=== PATIENT | female | born 1940 | race Caucasian/White ===

== ENCOUNTER 2016-05-03 18:33 | Emergency (ER) | payer OTHER ==
[~2016-05-03] VITALS: Ht 147.3 cm; Wt 111.0 kg
[~2016-05-03 18:33] MED LIST: ALBU0.63 NEB; ASPI1TAB69 PO; CEPH-460 PO; CHOLMIS PO; TRAZ150T75 PO; VIST50CA PO; blood pressure med PO; diabetic med PO
[2016-05-03 19:06] VITALS: BP 169/69; PULSE 86; RESP 24; TEMP 98; O2SAT 84
[2016-05-03 19:28] VITALS: O2SAT 86
[2016-05-03] MEDS ORDERED: SODIUM CHLORIDE 0.9% FLUSH 5 ML FLUSH IVF PRN (19:30)
--- NOTE | 2016-05-03 19:34 | PD ---
HPI Chief Complaint: Respiratory Symptoms Time Seen by Provider: 19:17 Travel History International Travel<30 days: No Contact w/Intl Traveler<30days: No Traveled to known affect area: No History of Present Illness HPI This is a 75-year-old female with history of diabetes mellitus, COPD, reported CHF, who presents today with complaints of general malaise. The patient reports that she is just not been feeling her normal self. She states she's been feeling weak. She reports pain in her left sided chest that radiates to her left flank. She reports a productive cough of yellow phlegm. She also reports loose stools 2 days. She denies any dysuria, urgency, frequency. She reports using her nebulizer at home with no improvement. She has had "walking pneumonia" in the past. She reports feeling warm and chills but has not taken her temperature. PFSH Past Medical History Hx Anticoagulant Therapy: No Arthritis: Yes (bilateral knees) Asthma: Yes Autoimmune Disease: No Anxiety: Yes Depression: Yes Heart Rhythm Problems: No Cancer: No Cardiovascular Problems: Yes (HTN, CHOL) High Cholesterol: Yes Chest Pain: No Congestive Heart Failure: No COPD: Yes Diabetes: Yes (TYPE 2) Patient Takes Glucophage: No Diminished Hearing: Yes (SLIGHTLY MOHEGAN BILAT) Endocrine: Yes Gastrointestinal Disorders: Yes GERD: Yes Genitourinary: No Hiatal Hernia: No Hypertension: Yes Immune Disorder: No Musculoskeletal: Yes Neurologic: No Psychiatric: No Reproductive: No Respiratory: Yes (COPD) Ulcer: No Past Surgical History Abdominal Surgery: Yes (apendectomy, gallbladder 1987) Appendectomy: Yes Cardiac Surgery: No Cholecystectomy: Yes Ear Surgery: No Endocrine Surgery: No Eye Surgery: No Genitourinary Surgery: No Gynecologic Surgery: Yes (hysterectomy 1967, left breast cyst removed and nipple area removed) Hysterectomy: Yes Neurologic Surgery: No Oral Surgery: Yes (teeth extracted) Thoracic Surgery: No Tonsillectomy: Yes Other Surgery: Yes Social History Alcohol Use: No Tobacco Use: No (quit 6 years ago smoked 1 ppd for 40+ yrs) Substance Use: No Allergies-Medications (Allergen,Severity, Reaction): Coded Allergies: Amoxicillin (Verified Allergy, Severe, HIVES, 05/03/16) Cortisone (Verified Allergy, Severe, 05/03/16) E-Mycin (Verified Allergy, Severe, HIVES, 05/03/16) Penicillin (Verified Allergy, Severe, HIVES, 05/03/16) Reported Meds & Prescriptions Reported Meds & Active Scripts Active Keflex (Cephalexin) 500 Mg Cap 500 Mg PO Q6H Reported Terazosin (Terazosin HCl) 10 Mg Cap 10 Mg PO HS Furosemide 20 Mg Tab 20 Mg PO DAILY Allopurinol 300 Mg Tab 300 Mg PO DAILY Lisinopril 5 Mg Tab 5 Mg PO DAILY Glipizide 5 Mg Tab 5 Mg PO BIDAC Take 30 minutes before a meal Janumet (Sitagliptin-Metformin) 50-500 Mg Tab 1 Tab PO BID Amlodipine (Amlodipine Besylate) 10 Mg Tab 10 Mg PO DAILY [Aller-Renita] 10 Mg Atorvastatin (Atorvastatin Calcium) Unknown Strength Tab Unknown Dose PO HS D3 Ultra Strength (Cholecalciferol) 5,000 Unit Cap 5,000 Units PO DAILY Levothyroxine (Levothyroxine Sodium) 125 Mcg Tab 125 Mcg PO DAILY Aspirin 81 Mg Tabdr 81 Mg PO DAILY Cholesterol Unknown Strength Mis Unknown Dose PO HS [blood pressure med] Unknown Strength Unknown Dose PO DAILY [diabetic med] Unknown Strength Unknown Dose PO BID Albuterol Neb (Albuterol Sulfate) Unknown Strength Neb Unknown Dose NEB Q4HR NEB PRN Vistaril (Hydroxyzine Pamoate) 50 Mg Cap 50 Mg PO Q6HR PRN Trazodone (Trazodone HCl) 150 Mg Tab 150 Mg PO HS Review of Systems Except as stated in HPI: all other systems reviewed are Neg General / Constitutional: Positive: Fever (reports feeling warm although has not taken temperature), Chills HENT: No: Headaches, Lightheadedness Cardiovascular: Positive: Chest Pain or Discomfort (left sided lateral chest under the breast radiate into her left flank) Respiratory: Positive: Cough (reductive yellow phlegm), Shortness of Breath ( chronic), No: Wheezing Gastrointestinal: Positive: Diarrhea, No: Nausea, Vomiting, Abdominal Pain Genitourinary: No: Frequency, Dysuria, Nocturia Musculoskeletal: Positive: Weakness (generalized) Neurologic: Positive: Weakness (generalized), No: Dizziness, Headache, Change in Mentation Psychiatric: Positive: Anxiety (eels anxious and does not like to be alone) Physical Exam Narrative GENERAL: This is an obese female in no acute respiratory distress. SKIN: Warm and dry. HEAD: Atraumatic. Normocephalic. EYES: No scleral icterus. No injection or drainage. ENT: No nasal bleeding or discharge. Slight dry mucous membranes. NECK: Trachea midline. Supple. CARDIOVASCULAR: Rate in the 80s. No ectopy or murmurs appreciated. RESPIRATORY: Breath sounds equal bilaterally. There appeared to be fine crackles at the left base. Auscultation was difficult secondary to patient's habitus. GASTROINTESTINAL: Abdomen soft, obese non-tender, nondistended. MUSCULOSKELETAL: No obvious deformities. The patient has a large habitus with what appears to be one plus edema bilaterally. There is no calf tenderness or popliteal cords bilaterally. NEUROLOGICAL: Awake and alert. No obvious cranial nerve deficits. Data Data Last Documented VS Vital Signs Date Time Temp Pulse Resp B/P Pulse Ox O2 Delivery O2 Flow Rate FiO2 05/03/16 22:09 105 24 119/56 90 Nasal Cannula 5 05/03/16 19:06 98.0 Orders Complete Blood Count With Diff (05/03/16 19:26) Comprehensive Metabolic Panel (05/03/16 19:26) Ckmb (Isoenzyme) Profile (05/03/16 19:26) Troponin I (05/03/16 19:26) Arterial Blood Gas (Abg) (05/03/16 19:26) Urinalysis - C+S If Indicated (05/03/16 19:26) Iv Access Insert/Monitor (05/03/16 19:26) Ecg Monitoring (05/03/16 19:26) Oximetry (05/03/16 19:26) Oxygen Administration (05/03/16 19:26) Chest, Single Ap (05/03/16 19:26) Sodium Chloride 0.9% Flush (Ns Flush) (05/03/16 19:30) Albuterol Neb (Albuterol Neb) (05/03/16 19:30) D-Dimer (05/03/16 20:15) Influenzae A/B Antigen (05/03/16 20:15) Electrocardiogram (05/03/16 19:16) Ventilation & Perfusion Scan (05/03/16 ) Lorazepam Inj (Ativan Inj) (05/03/16 21:45) Bedside Glucose MICHELLE.AC&HS (05/04/16 00:55) ^ Blood Glucose Goal (Criteria (05/04/16 00:55) ^ Hypoglycemia 51 - 69 Mg/Dl (05/04/16 00:55) ^ Hypoglycemia 50 Mg/Dl Or < (05/04/16 00:55) ^ Notify Dr: Other (05/04/16 00:55) Dextrose 50% In Shilo (Vial) Inj (D50w (Vi (05/04/16 01:00) Glucagon Inj (Glucagon Inj) (05/04/16 01:00) Insulin Aspart Supplemtl Scale (Novolog (05/04/16 07:00) Guaifenesin Er (Mucinex Er) (05/04/16 09:00) Albuterol-Ipratropium Neb (Duoneb Neb) (05/04/16 08:00) Albuterol-Ipratropium Neb (Duoneb Neb) (05/04/16 01:00) Admit To Inpatient (05/04/16 ) Vital Signs (Adult) Q4H (05/04/16 00:55) Activity Oob With Assistance (05/04/16 00:55) Form Builder / Telemetry .CONTINUOUS (05/04/16 00:55) Intake + Output MICHELLE.QSHIFT (05/04/16 00:55) Diet 1800 Ada Cons Carb (05/04/16 Breakfast) Sodium Chlor 0.9% 1000 Ml Inj (Ns 1000 M (05/04/16 01:00) Sodium Chloride 0.9% Flush (Ns Flush) (05/04/16 01:00) Sodium Chloride 0.9% Flush (Ns Flush) (05/04/16 09:00) Ondansetron Inj (Zofran Inj) (05/04/16 01:00) Bisacodyl Supp (Dulcolax Supp) (05/04/16 01:00) Comprehensive Metabolic Panel (05/05/16 06:00) Complete Blood Count With Diff (05/05/16 06:00) Scd Bilateral/Knee High MICHELLE.BID (05/04/16 00:55) Acetaminophen (Tylenol) (05/04/16 01:00) Acetamin-Hydrocod 325-5 Mg ([place] 5-325 (05/04/16 01:00) Morphine Inj (Morphine Inj) (05/04/16 01:00) Inpatient Certification (05/04/16 ) Trazodone (Desyrel) (05/04/16 21:00) Labs Laboratory Tests Test 05/03/16 05/03/16 05/03/16 05/03/16 19:35 19:38 19:45 20:25 Urine Color YELLOW Urine Turbidity CLEAR Urine pH 5.5 Urine Specific [place] 1.016 Urine Protein NEG mg/dL Urine Glucose (UA) NEG mg/dL Urine Ketones NEG mg/dL Urine Occult Blood NEG Urine Nitrite NEG Urine Bilirubin NEG Urine Urobilinogen LESS THAN 2.0 MG/DL Urine Leukocyte Esterase NEG Urine RBC LESS THAN 1 /hpf Urine WBC LESS THAN 1 /hpf Urine Squamous Epithelial 2 /hpf Cells Urine Mucus FEW /lpf Microscopic Urinalysis Comment CULT NOT INDICATED White Blood Count 7.9 TH/MM3 Red Blood Count 4.20 MIL/MM3 Hemoglobin 12.8 GM/DL Hematocrit 39.3 % Mean Corpuscular Volume 93.5 FL Mean Corpuscular Hemoglobin 30.4 PG Mean Corpuscular Hemoglobin 32.5 % Concent Red Cell Distribution Width 15.3 % Platelet Count 315 TH/MM3 Mean Platelet Volume 8.5 FL Neutrophils (%) (Auto) 69.3 % Lymphocytes (%) (Auto) 12.5 % Monocytes (%) (Auto) 9.5 % Eosinophils (%) (Auto) 8.0 % Basophils (%) (Auto) 0.7 % Neutrophils # (Auto) 5.4 TH/MM3 Lymphocytes # (Auto) 1.0 TH/MM3 Monocytes # (Auto) 0.8 TH/MM3 Eosinophils # (Auto) 0.6 TH/MM3 Basophils # (Auto) 0.1 TH/MM3 CBC Comment DIFF FINAL Differential Comment Sodium Level 136 MEQ/L Potassium Level 4.1 MEQ/L Chloride Level 93 MEQ/L Carbon Dioxide Level 32.6 MEQ/L Anion Gap 10 MEQ/L Blood Urea Nitrogen 21 MG/DL Creatinine 1.71 MG/DL Estimat Glomerular Filtration 29 ML/MIN Rate Random Glucose 144 MG/DL Calcium Level 9.2 MG/DL Total Bilirubin 0.2 MG/DL Aspartate Amino Transf 14 U/L (AST/SGOT) Alanine Aminotransferase 14 U/L (ALT/SGPT) Alkaline Phosphatase 156 U/L Total Creatine Kinase 37 U/L Troponin I LESS THAN 0.02 NG/ML Total Protein 7.1 GM/DL Albumin 3.2 GM/DL Blood Gas Puncture Site LT BRACHIAL Blood Gas Patient Temperature 98.6 Blood Gas HCO3 31 mmol/L Blood Gas Base Excess 6.0 mmol/L Blood Gas Oxygen Saturation 80 % Arterial Blood pH 7.40 Arterial Blood Partial 50 mmHg Pressure CO2 Arterial Blood Partial 49 mmHG Pressure O2 Arterial Blood Oxygen Content 14.3 Vol % Arterial Blood 2.1 % Carboxyhemoglobin Arterial Blood Methemoglobin 2.0 % Blood Gas Hemoglobin 12.7 G/DL Oxygen Delivery Device NASAL CANNULA Blood Gas Liter Flow 3 L/M D-Dimer Quantitative (PE/DVT) 0.83 MG/L FEU MDM Medical Decision Making Medical Screen Exam Complete: Yes Emergency Medical Condition: Yes Differential Diagnosis COPD versus CHF versus pulmonary embolus Narrative Course This is a 75-year-old female history of COPD, morbid obesity, renal insufficiency, who presents here with complaints of shortness of breath 2 days. The patient has oxygen saturations that dropped into the 80s with any exertion. VQ scan shows no evidence of pulmonary him was in, chest x-ray did not show any acute process. I've insisted that the patient should be admitted to the hospital for oxygen saturation dropping into the 80s. She was initially amenable however she had the desire to first leave and come back later. I told her that would be against my advice and that she would need to sign out AGAINST MEDICAL ADVICE. Shortly thereafter she said she would stay however she wanted a hospital bed and to be old to use the restroom. I told her that we would have her assisted to the restroom and that we would obtain a hospital bed. Shortly thereafter she told her that she wants to leave. She'll sign out AGAINST MEDICAL ADVICE. Told her she can return at any time. I did warn her that I felt that she would not do well. AMA: The risks of leaving against medical advice without further evaluation treatment were discussed with the patient. These risks include cardiac dysfunction, cardiac dysrhythmia, possible heart attack, possible stroke or . The patient indicated understanding of these risks and appeared to have the capacity to make this decision. Diagnosis Primary Impression: Decompensated COPD with exacerbation (chronic obstructive pulmonary disease) Disposition: 07 AGAINST MEDICAL ADVICE Jairo Higuera MD May 03, 2016 19:34
[2016-05-03] MEDS ORDERED: LEVO125T4 PO (19:50)
[2016-05-03] MEDS ORDERED: D3 U5000 PO (19:50)
[2016-05-03] MEDS ORDERED: ATOR10TA15 PO (19:50)
[2016-05-03] MEDS ORDERED: AMLO10TA2 PO (19:50)
[2016-05-03] MEDS ORDERED: JANU50TA4 PO (19:50)
[2016-05-03] MEDS ORDERED: ALLER-TEC (19:50)
[2016-05-03] MEDS ORDERED: LISI-519 PO (19:50)
[2016-05-03] MEDS ORDERED: FURO20TA PO (19:50)
[2016-05-03] MEDS ORDERED: TERA10CA3 PO (19:50)
[2016-05-03] MEDS ORDERED: GLIP5TAB8 PO (19:50)
[2016-05-03] MEDS ORDERED: ALLO300T2 PO (19:50)
[2016-05-03 19:56] LABS: BLOOD, URINE NEG (NEG); COMMENT (UR) CULT NOT INDICATED; CULTURE IF INDICATED CULT NOT INDICATED; GLUCOSE,URINE NEG (NEG); KETONE, URINE NEG (NEG); MUCUS URINE FEW /lpf (OCC); NITRITE,URINE NEG (NEG); PH, URINE 5.5 (5.0-8.5); SQUAMOUS EPITHELIAL CELL URINE 2 /hpf (0-5); URINE COLOR YELLOW (YELLW/STRAW)
[2016-05-03 19:57] LABS: BLOOD GAS CARBOXYHEMOGLOBIN 2.1 % (0-4); BLOOD GAS HCO3 31 mmol/L (22-26); BLOOD GAS O2 HGB SATURATION 80 % (90-100); BLOOD GAS OXYGEN CONTENT 14.3 Vol % (12.0-20.0); BLOOD GAS PCO2 50 mmHg (38-42); BLOOD GAS PO2 49 mmHG (61-120); BLOOD GAS TOTAL HGB 12.7 G/DL (12.0-16.0); TEMP CORR TO 98.6
[2016-05-03 19:57] LABS: AUTOMATED NEUTROPHIL # 5.4 TH/MM3 (1.8-7.7); BASOPHIL # 0.1 TH/MM3 (0-0.2); BASOPHIL % 0.7 % (0.0-2.0); EOSINOPHIL # 0.6 TH/MM3 (0-0.4); HEMATOCRIT 39.3 % (35.0-46.0); HEMO FLAGS DIFF FINAL; LYMPH % 12.5 % (9.0-44.0); MEAN CELL VOLUME 93.5 FL (80.0-100.0); MEAN CORPUSCULAR HEMOGLOBIN 30.4 PG (27.0-34.0); MEAN CORPUSCULAR HGB CONC 32.5 % (32.0-36.0); MONO % 9.5 % (0.0-8.0); NEUT % 69.3 % (16.0-70.0); PLATELET COUNT 315 TH/MM3 (150-450); RED CELL DISTRIBUTION WIDTH 15.3 % (11.6-17.2); WHITE BLOOD COUNT 7.9 TH/MM3 (4.0-11.0)
[2016-05-03 19:58] LABS: CRITICAL VALUE YES; DRAW SITE LT BRACHIAL; LITER FLOW 3 L/M; NUMBER OF ARTERIAL PUNCTURES 1; OXYGEN DEVICE NASAL CANNULA; STAT YES
--- NOTE | 2016-05-03 19:58 | RADRPT ---
EXAM DATE/TIME: 05/03/2016 19:38 [facility] COMPARISON: CHEST SINGLE AP, January 21, 2016, 18:08. INDICATIONS : Short of breath. MEDICAL HISTORY : Hypertension. Hypercholesterolemia. Chronic obstructive pulmonary disease. Asthma. Diabetes. SURGICAL HISTORY : Cholecystectomy. Hysterectomy. ENCOUNTER: Initial ACUITY: 3 days PAIN SCORE: 2/10 LOCATION: Bilateral chest FINDINGS: A single view of the chest demonstrates the lungs to be symmetrically aerated without evidence of mas s, infiltrate or effusion. The cardiomediastinal contours are unremarkable. Osseous structures are intact. CONCLUSION: No acute disease. José Antonio Titus MD on May 03, 2016 at 19:51 Board Certified Radiologist. This report was verified electronically.
[2016-05-03 20:28] LABS: ANION GAP 10 MEQ/L (5-15); AST (GOT) 14 U/L (15-37); BICARBONATE 32.6 MEQ/L (21.0-32.0); BLOOD UREA NITROGEN 21 MG/DL (7-18); CHLORIDE 93 MEQ/L (98-107); GLOMERULAR FILTRATION RATE 29 ML/MIN (>89); POTASSIUM 4.1 MEQ/L (3.5-5.1); SODIUM (NA) 136 MEQ/L (136-145)
[2016-05-03 20:30] VITALS: BP 150/71; PULSE 79; RESP 24; O2SAT 91
[2016-05-03 20:32] LABS: ALKALINE PHOSPHATASE 156 U/L (45-117); ALT (GPT) 14 U/L (10-53); TOTAL BILIRUBIN ADULT 0.2 MG/DL (0.2-1.0)
[2016-05-03 20:39] LABS: CREATINE KINASE 37 U/L (26-192)
[2016-05-03] MEDS: RESP: ALBUTEROL 2.5 MG/3 ML NEB (SCH) INH ×2 (20:57→20:58)
[2016-05-03] MEDS ORDERED: LORazepam 2 MG/ML VIAL IV PUSH ONE (21:45)
[2016-05-03 22:09] VITALS: BP 119/56; PULSE 105; RESP 24; O2SAT 90
--- NOTE | 2016-05-03 23:49 | RADRPT ---
EXAM DATE/TIME: 05/03/2016 22:57 [facility] COMPARISON: No previous studies available for comparison. INDICATIONS : Shortness of breath with left sided chest pain and generalized weakness for one day. DOSE: 8.8 mCi Tc99m MAA IV 0.68 mCi Tc99m DTPA aerosol MEDICAL HISTORY : Diabetes mellitus type 2. Chronic obstructive pulmonary disease. Congestive heart failure. SURGICAL HISTORY : Appendectomy. Cholecystectomy. Hysterectomy. ENCOUNTER: Initial ACUITY: 1 day PAIN SCALE: 6/10 LOCATION: Left chest TECHNIQUE: Following five minutes of tidal breathing of DTPA aerosol, planar images of the lungs were performed in eight projections. The patient was then injected with MAA, and eight-view perfusion scan was perf ormed. FINDINGS: There is a homogeneous pattern of aerosol delivery to the periphery of both lungs. No focal ventilat ory defects are seen. The perfusion lung scan demonstrates a homogenous pattern of uptake in both lungs. No segmental or s ubsegmental defects are seen. CONCLUSION: 1. Low probability of pulmonary embolism Major Dominguez MD on May 03, 2016 at 23:48 Board Certified Radiologist. This report was verified electronically.
[2016-05-04] MEDS ORDERED: GLUCAGON 1 MG/ML VIAL OTHER PRN (01:00)
[2016-05-04] MEDS ORDERED: ONDANSETRON HCL 4 MG/2 ML VIAL IVP PRN (01:00)
[2016-05-04] MEDS ORDERED: BISACODYL 10 MG SUPP PR PRN (01:00)
[2016-05-04] MEDS ORDERED: MORPHINE SULFATE 4 MG/ML INJ IV PRN (01:00)
[2016-05-04] MEDS ORDERED: ACETAMINOPHEN/HYDROcodone 325 MG/5 MG TAB PO PRN (01:00)
[2016-05-04] MEDS ORDERED: DEXTROSE 50% IN WATER 50 ML VIAL(D50) IV PUSH PRN (01:00)
[2016-05-04] MEDS ORDERED: ACETAMINOPHEN 325 MG TAB PO PRN (01:00)
[2016-05-04] MEDS ORDERED: RESP: ALBUTEROL 2.5 MG/IPRATROPIUM 0.5 MG NEB (PRN) NEB (01:00)
[2016-05-04] MEDS ORDERED: SODIUM CHLOR 0.9% 1000 ML INJ 1,000 ML IV ONE (01:00)
[2016-05-04] MEDS ORDERED: SODIUM CHLORIDE 0.9% FLUSH 5 ML FLUSH FLUSH PRN (01:00)
[2016-05-04 01:42] VITALS: BP 100/50
[2016-05-04] MEDS ORDERED: INSULIN ASPART SUPPLEMENTAL SCALE SQ SCH (07:00)
[2016-05-04] MEDS ORDERED: RESP: ALBUTEROL 2.5 MG/IPRATROPIUM 0.5 MG NEB (SCH) NEB (08:00)
--- NOTE | 2016-05-04 08:43 | EKG ---
Date Performed: 05/03/2016 Time Performed: 19:16:04 PTAGE: 75 years EKG: Sinus rhythm WITH SINUS ARRHYTHMIA NONSPECIFIC T-WAVE ABNORMALITY BORDERLINE ECG PREVIOUS TRACING : 01/21/2016 17.01 DOCTOR: Elan Leblanc Interpretating Date/Time 05/04/2016 08:39:28
[2016-05-04] MEDS ORDERED: guaiFENesin E.R. 600 MG TAB PO SCH (09:00)
[2016-05-04] MEDS ORDERED: SODIUM CHLORIDE 0.9% FLUSH 5 ML FLUSH FLUSH SCH (09:00)
[2016-05-04] MEDS ORDERED: ZYRT10TA PO (16:33)
[2016-05-04] MEDS ORDERED: ALLER-TEC (16:34)
[2016-05-04] MEDS ORDERED: traZODone HCL 50 MG TAB PO SCH (21:00)
== END 2016-05-04 01:42 | disposition left against medical advice (07) ==
LOC: NEPE 18:33
DX: J44.1 Chronic obstructive pulmonary disease with (acute) exacerbation (principal); I50.9 Heart failure, unspecified; F41.8 Other specified anxiety disorders; I10 Essential (primary) hypertension; E78.00 Pure hypercholesterolemia, unspecified; E11.9 Type 2 diabetes mellitus without complications; Z79.4 Long term (current) use of insulin
CPT/HCPCS: 36600; 71010; 78582; 80053; 81001; 82550; 82805; 84484; 85025; 85379; 87804; 93005; 94640; 94664; 96374; 99285; A9540; A9567; J2060; J7613

== ENCOUNTER 2016-07-08 23:05 | Inpatient (IN) | payer OTHER, MEDICARE ==
[~2016-07-08] VITALS: Ht 152.4 cm; Wt 117.6 kg
[~2016-07-08 23:05] MED LIST changes: +ALLER-TEC; +ALLO300T2 PO; +AMLO10TA2 PO; +ATOR10TA15 PO; +D3 U5000 PO; +FURO20TA PO; +GLIP5TAB8 PO; +JANU50TA4 PO; +LEVO125T4 PO; +LISI-519 PO; +TERA10CA3 PO
[2016-07-08 23:36] VITALS: BP 126/58; PULSE 68; RESP 18; TEMP 97.2; O2SAT 88
[2016-07-08 23:40] VITALS: O2SAT 85
[2016-07-08] MEDS ORDERED: methylPREDNISolone SOD SUCC 125 MG/2 ML VIAL IVP ONE (23:45)
[2016-07-08] MEDS ORDERED: SODIUM CHLORIDE 0.9% FLUSH 10 ML FLUSH IVF PRN (23:45)
--- NOTE | 2016-07-08 23:50 | PD ---
HPI Chief Complaint: Altered Mental Status Time Seen by Provider: 23:31 Travel History International Travel<30 days: No Contact w/Intl Traveler<30days: No Traveled to known affect area: No History of Present Illness HPI The patient was seen and examined in the presence of the nurse. This patient says that her called paramedics because she was confused and feeling out of it. She admits to some confusion today. Duration one day. Denies head injury or fever. She has COPD and uses oxygen and nebulizers at home. Symptoms severity is moderate. No alleviating factors. PFSH Past Medical History Hx Anticoagulant Therapy: No Arthritis: Yes (bilateral knees) Asthma: Yes Autoimmune Disease: No Anxiety: Yes Depression: Yes Heart Rhythm Problems: No Cancer: No Cardiovascular Problems: Yes (HTN, CHOL) High Cholesterol: Yes Chest Pain: No Congestive Heart Failure: No COPD: Yes Diabetes: Yes (TYPE 2) Patient Takes Glucophage: No Diminished Hearing: Yes (SLIGHTLY TAZLINA BILAT) Endocrine: Yes Gastrointestinal Disorders: Yes GERD: Yes Genitourinary: No Hiatal Hernia: No Hypertension: Yes Immune Disorder: No Musculoskeletal: Yes Neurologic: No Psychiatric: No Reproductive: No Respiratory: Yes (COPD) Ulcer: No ?: Not Past Surgical History Abdominal Surgery: Yes (apendectomy, gallbladder 1987) Appendectomy: Yes Cardiac Surgery: No Cholecystectomy: Yes Ear Surgery: No Endocrine Surgery: No Eye Surgery: No Genitourinary Surgery: No Gynecologic Surgery: Yes (hysterectomy 1967, left breast cyst removed and nipple area removed) Hysterectomy: Yes Neurologic Surgery: No Oral Surgery: Yes (teeth extracted) Thoracic Surgery: No Tonsillectomy: Yes Other Surgery: Yes Social History Alcohol Use: No Tobacco Use: No (quit 6 years ago smoked 1 ppd for 40+ yrs) Substance Use: No Allergies-Medications (Allergen,Severity, Reaction): Coded Allergies: Amoxicillin (Verified Allergy, Severe, HIVES, 07/08/16) Cortisone (Verified Allergy, Severe, 07/08/16) E-Mycin (Verified Allergy, Severe, HIVES, 07/08/16) Penicillin (Verified Allergy, Severe, HIVES, 07/08/16) Reported Meds & Prescriptions Reported Meds & Active Scripts Active Keflex (Cephalexin) 500 Mg Cap 500 Mg PO Q6H Reported [Aller-Renita] 10 Mg Terazosin (Terazosin HCl) 10 Mg Cap 10 Mg PO HS Furosemide 20 Mg Tab 20 Mg PO DAILY Allopurinol 300 Mg Tab 300 Mg PO DAILY Lisinopril 5 Mg Tab 5 Mg PO DAILY Glipizide 5 Mg Tab 5 Mg PO BIDAC Take 30 minutes before a meal Janumet (Sitagliptin-Metformin) 50-500 Mg Tab 1 Tab PO BID Amlodipine (Amlodipine Besylate) 10 Mg Tab 10 Mg PO DAILY Atorvastatin (Atorvastatin Calcium) Unknown Strength Tab Unknown Dose PO HS D3 Ultra Strength (Cholecalciferol) 5,000 Unit Cap 5,000 Units PO DAILY Levothyroxine (Levothyroxine Sodium) 125 Mcg Tab 125 Mcg PO DAILY Aspirin 81 Mg Tabdr 81 Mg PO DAILY Cholesterol Unknown Strength Mis Unknown Dose PO HS [blood pressure med] Unknown Strength Unknown Dose PO DAILY [diabetic med] Unknown Strength Unknown Dose PO BID Albuterol Neb (Albuterol Sulfate) Unknown Strength Neb Unknown Dose NEB Q4HR NEB PRN Vistaril (Hydroxyzine Pamoate) 50 Mg Cap 50 Mg PO Q6HR PRN Trazodone (Trazodone HCl) 150 Mg Tab 150 Mg PO HS Review of Systems General / Constitutional: No: Fever Eyes: No: Visual changes HENT: Positive: Congestion, No: Headaches Cardiovascular: No: Chest Pain or Discomfort Respiratory: Positive: Shortness of Breath Gastrointestinal: No: Abdominal Pain Genitourinary: No: Dysuria Musculoskeletal: Positive: Weakness, No: Pain Skin: No Rash Neurologic: Positive: Weakness, Change in Mentation Psychiatric: No: Depression Endocrine: No: Polydipsia Hematologic/Lymphatic: No: Easy Bruising Physical Exam Narrative GENERAL: Well-nourished, well-developed patient who is dyspneic and drowsy . SKIN: Focused skin assessment reveals no rash and nodules. Skin is Warm and dry. HEAD: Atraumatic. Normocephalic. EYES: Pupils equal and round. No scleral icterus. No injection or drainage. ENT: No nasal bleeding or discharge. Mucous membranes pink and moist. NECK: Trachea midline. No JVD. No meningeal signs CARDIOVASCULAR: Regular rate and rhythm. No murmur appreciated. RESPIRATORY: Positive accessory muscle use. Diminished breath sounds throughout with some rhonchi. Breath sounds equal bilaterally. GASTROINTESTINAL: Abdomen soft, non-tender, nondistended. Hepatic and splenic margins not palpable. MUSCULOSKELETAL: No obvious deformities. No clubbing. No cyanosis. No edema. NEUROLOGICAL: Awake but drowsy. No obvious cranial nerve deficits. Motor grossly within normal limits. Some slurring of speech. PSYCHIATRIC: Somewhat subdued and drowsy mood and affect; insight and judgment seems reduced . Data Data Last Documented VS Vital Signs Date Time Temp Pulse Resp B/P Pulse Ox O2 Delivery O2 Flow Rate FiO2 07/09/16 02:59 94 40 07/09/16 02:15 15.00 07/08/16 23:41 24 Simple Mask 07/08/16 23:36 97.2 68 126/58 Orders Complete Blood Count With Diff (07/08/16 23:45) Basic Metabolic Panel (Bmp) (07/08/16 23:45) Urinalysis - C+S If Indicated (07/08/16 23:45) Iv Access Insert/Monitor (07/08/16 23:45) Ecg Monitoring (07/08/16 23:45) Oximetry (07/08/16 23:45) Oxygen Administration (07/08/16 23:45) Chest, Single Ap (07/08/16 23:45) Cath For Specimen (07/08/16 23:45) Sodium Chloride 0.9% Flush (Ns Flush) (07/08/16 23:45) Methylprednisolone So Succ Inj (Solumedr (07/08/16 23:45) Albuterol-Ipratropium Neb (Duoneb Neb) (07/08/16 23:45) Ct Brain W/O Iv Contrast(Rout) (07/08/16 ) Arterial Blood Gas (Abg) (07/08/16 ) Resp Bipap / Cpap Non Invas Vt (07/08/16 ) Allopurinol (Zyloprim) (07/09/16 09:00) Amlodipine (Norvasc) (07/09/16 09:00) Aspirin Ec (Ecotrin Ec) (07/09/16 09:00) Furosemide (Lasix) (07/09/16 09:00) Levothyroxine (Synthroid) (07/09/16 06:00) Lisinopril (Prinivil) (07/09/16 09:00) Terazosin (Hytrin) (07/09/16 21:00) Trazodone (Desyrel) (07/09/16 21:00) Admit To Inpatient (07/09/16 ) Code Status (07/09/16 03:13) Vital Signs (Adult) MICHELLE.Q1H (07/09/16 03:13) ^ Elevate Head Of Bed (07/09/16 03:13) Activity Oob With Assistance (07/09/16 03:13) Diet Diabetic (07/09/16 Breakfast) Acetaminophen (Tylenol) (07/09/16 03:15) Famotidine (Pepcid) (07/09/16 09:00) Ondansetron Inj (Zofran Inj) (07/09/16 03:15) Metoclopramide Inj (Reglan Inj) (07/09/16 03:15) Albuterol-Ipratropium Neb (Duoneb Neb) (07/09/16 04:00) Albuterol-Ipratropium Neb (Duoneb Neb) (07/09/16 03:15) Complete Blood Count With Diff (07/10/16 04:00) Comprehensive Metabolic Panel (07/10/16 04:00) Magnesium (Mg) (07/10/16 04:00) Phosphorus (Po4) (07/10/16 04:00) Chest, Single Ap (07/10/16 ) Consult Pulmonology (07/09/16 ) Class A [employer] / Telemetry MICHELLE.Q8H (07/09/16 03:13) Heparin Inj (Heparin Inj) (07/09/16 03:15) ^ Initiate Protocol (07/09/16 03:13) ^ Instruction (07/09/16 03:13) [facility] [place] Nursing Information (07/09/16 03:15) Chlorhexidine 2% Cloth (Chlorhexidine 2% (07/09/16 04:00) Chlorhexidine 2% Cloth (Chlorhexidine 2% (07/09/16 03:15) [facility] Pcr Surveillance (07/09/16 03:13) Inpatient Certification (07/09/16 ) Methylprednisolone So Succ Inj (Solumedr (07/09/16 06:00) Azithromycin Inj (Zithromax Inj) (07/09/16 03:30) Aztreonam Inj (Azactam Inj) (07/09/16 03:30) Labs Laboratory Tests Test 07/09/16 07/09/16 00:24 00:35 White Blood Count 10.4 TH/MM3 Red Blood Count 3.74 MIL/MM3 Hemoglobin 11.0 GM/DL Hematocrit 34.5 % Mean Corpuscular Volume 92.4 FL Mean Corpuscular Hemoglobin 29.5 PG Mean Corpuscular Hemoglobin 31.9 % Concent Red Cell Distribution Width 16.5 % Platelet Count 281 TH/MM3 Mean Platelet Volume 9.3 FL Neutrophils (%) (Auto) 76.3 % Lymphocytes (%) (Auto) 10.1 % Monocytes (%) (Auto) 10.9 % Eosinophils (%) (Auto) 1.9 % Basophils (%) (Auto) 0.8 % Neutrophils # (Auto) 8.0 TH/MM3 Lymphocytes # (Auto) 1.1 TH/MM3 Monocytes # (Auto) 1.1 TH/MM3 Eosinophils # (Auto) 0.2 TH/MM3 Basophils # (Auto) 0.1 TH/MM3 CBC Comment DIFF FINAL Differential Comment Sodium Level 136 MEQ/L Potassium Level 4.6 MEQ/L Chloride Level 98 MEQ/L Carbon Dioxide Level 29.2 MEQ/L Anion Gap 9 MEQ/L Blood Urea Nitrogen 18 MG/DL Creatinine 2.68 MG/DL Estimat Glomerular Filtration 17 ML/MIN Rate Random Glucose 107 MG/DL Calcium Level 8.6 MG/DL Blood Gas Puncture Site LT FOOT Blood Gas Patient Temperature 98.6 Blood Gas HCO3 28 mmol/L Blood Gas Base Excess 3.0 mmol/L Blood Gas Oxygen Saturation 92 % Arterial Blood pH 7.34 Arterial Blood Partial 55 mmHg Pressure CO2 Arterial Blood Partial 74 mmHG Pressure O2 Arterial Blood Oxygen Content 14.1 Vol % Arterial Blood 1.1 % Carboxyhemoglobin Arterial Blood Methemoglobin 0.5 % Blood Gas Hemoglobin 10.9 G/DL Oxygen Delivery Device BIPAP Blood Gas Ventilator Setting 16 IPAP 8 EPAP Blood Gas Inspired Oxygen 85 % [facility] Medical Decision Making Medical Screen Exam Complete: Yes Emergency Medical Condition: Yes Medical Record Reviewed: Yes Differential Diagnosis Respiratory failure, hypercarbia, COPD, intracranial hemorrhage Narrative Course I have reviewed the patient's electronic medical record. IV placed I gave her series of 3 nebulizer treatments and IV Solu-Medrol Placed on BiPAP therapy as she is quite hypoxic on 4 L cannula I think she may be retaining CO2 causing her CO2 narcosis Hopefully BiPAP will help I've ordered an ABG I reviewed her chest x-ray which is negative CBC which shows mild leukocytosis Metabolic profile shows renal sufficiency Urinalysis ordered but not collected yet Brain CT is negative I reviewed the ABG which shows PO2 of only 70 is on significant FiO2 through BiPAP. CO2 is also elevated and diabetic improved as she looks clinically improved on the BiPAP Patient critically ill going to intensive care on BiPAP with acute hypoxic respiratory failure and CO2 narcosis However she does look improved from arrival I reviewed with consumer relations complaint clerk Critical Care Narrative Aggregate critical care time was 45 minutes. Time to perform other separately billable procedures was not included in the critical care time. My time did not include minutes spent treating any other patients simultaneously or on activities that did not directly contribute to the patient's treatment. The services I provided to this patient were to treat and/or prevent clinically significant deterioration that could result in: Cardiopulmonary arrest, hypoxemic brain injury, cardiac arrhythmia I provided critical care services requiring my management, as noted below: Chart data review, documentation time, medication orders and management, vital sign assessments/reviewing monitor data, ordering and reviewing lab tests, ordering and interpreting/reviewing x-rays and diagnostic studies, care of the patient and discussion of the patient with the admitting physicians. Diagnosis Primary Impression: Acute respiratory failure with hypoxia and hypercarbia Additional Impressions: COPD (chronic obstructive pulmonary disease) Qualified Code: J44.1 - Chronic obstructive pulmonary disease with acute exacerbation CO2 narcosis Admitting Information Admitting Physician Requests: Admit Maksim Dupont MD Jul 08, 2016 23:50
[2016-07-08 23:55] VITALS: O2SAT 95
[2016-07-09] VITALS (23 sets, daily range): BP systolic 117–150; BP diastolic 55–81; PULSE 63–97; RESP 13–26; TEMP 97.8–98.8; O2SAT 90–97
[2016-07-09] MEDS: RESP: ALBUTEROL 2.5 MG/IPRATROPIUM 0.5 MG NEB (SCH) INH ×8 (00:24→23:51)
--- NOTE | 2016-07-09 00:36 | RADRPT ---
EXAM DATE/TIME: 07/09/2016 00:14 [facility] COMPARISON: CHEST SINGLE AP, May 03, 2016, 19:38. INDICATIONS : Short of breath. MEDICAL HISTORY : None. SURGICAL HISTORY : None. ENCOUNTER: Initial ACUITY: 1 day PAIN SCORE: Non-responsive. LOCATION: Bilateral chest FINDINGS: A single view of the chest demonstrates the lungs to be symmetrically aerated without evidence of mas s, infiltrate or effusion. The cardiomediastinal contours are unremarkable. Osseous structures are intact. CONCLUSION: No acute disease. Cheo Clark Jr., MD on July 09, 2016 at 0:34 Board Certified Radiologist. This report was verified electronically.
[2016-07-09 00:52] LABS: BLOOD GAS CARBOXYHEMOGLOBIN 1.1 % (0-4); BLOOD GAS HCO3 28 mmol/L (22-26); BLOOD GAS METHEMOGLOBIN 0.5 % (0-2); BLOOD GAS O2 HGB SATURATION 92 % (90-100); BLOOD GAS OXYGEN CONTENT 14.1 Vol % (12.0-20.0); BLOOD GAS PCO2 55 mmHg (38-42); BLOOD GAS PO2 74 mmHG (61-120); BLOOD GAS TOTAL HGB 10.9 G/DL (12.0-16.0); TEMP CORR TO 98.6
[2016-07-09 00:53] LABS: CRITICAL VALUE YES; OXYGEN DEVICE BIPAP; VENT SETTINGS 16 IPAP 8 EPAP
[2016-07-09 00:54] LABS: DRAW SITE LT FOOT; FIO2 85 %; NUMBER OF ARTERIAL PUNCTURES 1; STAT YES
[2016-07-09 00:57] LABS: BASOPHIL # 0.1 TH/MM3 (0-0.2); BASOPHIL % 0.8 % (0.0-2.0); EOSINOPHIL # 0.2 TH/MM3 (0-0.4); EOSINOPHIL % 1.9 % (0.0-4.0); HEMATOCRIT 34.5 % (35.0-46.0); HEMO FLAGS DIFF FINAL; LYMPH % 10.1 % (9.0-44.0); LYMPHOCYTE # 1.1 TH/MM3 (1.0-4.8); MEAN CELL VOLUME 92.4 FL (80.0-100.0); MEAN CORPUSCULAR HEMOGLOBIN 29.5 PG (27.0-34.0); MEAN CORPUSCULAR HGB CONC 31.9 % (32.0-36.0); MONO % 10.9 % (0.0-8.0); NEUT % 76.3 % (16.0-70.0); PLATELET COUNT 281 TH/MM3 (150-450); RED BLOOD COUNT 3.74 MIL/MM3 (4.00-5.30); RED CELL DISTRIBUTION WIDTH 16.5 % (11.6-17.2); WHITE BLOOD COUNT 10.4 TH/MM3 (4.0-11.0)
[2016-07-09 01:32] LABS: BICARBONATE 29.2 MEQ/L (21.0-32.0); POTASSIUM 4.6 MEQ/L (3.5-5.1)
--- NOTE | 2016-07-09 02:38 | RADRPT ---
EXAM DATE/TIME: 07/09/2016 02:21 [facility] COMPARISON: No previous studies available for comparison. INDICATIONS : Altered mental status. RADIATION DOSE: 48.98 CTDIvol (mGy) MEDICAL HISTORY : Hypertension. Chronic obstructive pulmonary disease. Asthma. SURGICAL HISTORY : Appendectomy. Hysterectomy.Cholecystectomy.Tonsillectomy. ENCOUNTER: Initial ACUITY: 1 day PAIN SCALE: 0/10 LOCATION: cranial TECHNIQUE: Multiple contiguous axial images were obtained of the head. Using automated exposure control and adj ustment of the mA and/or kV according to patient size, radiation dose was kept as low as reasonably a chievable to obtain optimal diagnostic quality images. FINDINGS: CEREBRUM: The ventricles are normal for age. No evidence of midline shift, mass lesion, hemorrhage or acute in farction. No extra-axial fluid collections are seen. POSTERIOR FOSSA: The cerebellum and brainstem are intact. The 4th ventricle is midline. The cerebellopontine angle i s unremarkable. EXTRACRANIAL: The visualized portion of the orbits is intact. SKULL: The calvaria is intact. No evidence of skull fracture. CONCLUSION: Normal examination. Cheo Clark Jr., MD on July 09, 2016 at 2:36 Board Certified Radiologist. This report was verified electronically.
[2016-07-09] MEDS ORDERED: ONDANSETRON HCL 4 MG/2 ML VIAL IV PRN (03:15)
[2016-07-09] MEDS ORDERED: MISCELLANEOUS NURSING INFORMATION XX SCH (03:15)
[2016-07-09] MEDS ORDERED: CHLORHEXIDINE GLUCONATE 2 % 1 PACK (2 CLOTHS) TOP PRN (03:15)
[2016-07-09] MEDS ORDERED: METOCLOPRAMIDE HCL 10 MG/2 ML VIAL IV PRN (03:15)
--- NOTE | 2016-07-09 03:21 | HHI.HP ---
HPI Service Critical Care Medicine Primary Care Physician Unknown Admission Diagnosis Diagnosis: Travel History International Travel<30 Days: No Contact w/Intl Traveler <30 Da: No Traveled to Known Affected Are: No History of Present Illness 75 -year-old female with history of COPD on oxygen and nebulizers at home, hypertension diabetes , the patient's called paramedics because she was confused and feeling out of it. She admits to some confusion today. Duration one day. Denies head injury or fever. Review of Systems ROS Unable to obtain patient on facemask BiPAP Past Family Social History Allergies: Coded Allergies: Amoxicillin (Verified Allergy, Severe, HIVES, 07/08/16) Cortisone (Verified Allergy, Severe, 07/08/16) E-Mycin (Verified Allergy, Severe, HIVES, 07/08/16) Penicillin (Verified Allergy, Severe, HIVES, 07/08/16) Past Medical History Hypertension Diabetes Dyslipidemia COPD Past Surgical History Hysterectomy Appendectomy Cholecystectomy Bladder surgery Reported Medications Reported Meds & Active Scripts Active Keflex (Cephalexin) 500 Mg Cap 500 Mg PO Q6H Reported [Aller-Renita] 10 Mg Terazosin (Terazosin HCl) 10 Mg Cap 10 Mg PO HS Furosemide 20 Mg Tab 20 Mg PO DAILY Allopurinol 300 Mg Tab 300 Mg PO DAILY Lisinopril 5 Mg Tab 5 Mg PO DAILY Glipizide 5 Mg Tab 5 Mg PO BIDAC Take 30 minutes before a meal Janumet (Sitagliptin-Metformin) 50-500 Mg Tab 1 Tab PO BID Amlodipine (Amlodipine Besylate) 10 Mg Tab 10 Mg PO DAILY Atorvastatin (Atorvastatin Calcium) Unknown Strength Tab Unknown Dose PO HS D3 Ultra Strength (Cholecalciferol) 5,000 Unit Cap 5,000 Units PO DAILY Levothyroxine (Levothyroxine Sodium) 125 Mcg Tab 125 Mcg PO DAILY Aspirin 81 Mg Tabdr 81 Mg PO DAILY Cholesterol Unknown Strength Mis Unknown Dose PO HS [blood pressure med] Unknown Strength Unknown Dose PO DAILY [diabetic med] Unknown Strength Unknown Dose PO BID Albuterol Neb (Albuterol Sulfate) Unknown Strength Neb Unknown Dose NEB Q4HR NEB PRN Vistaril (Hydroxyzine Pamoate) 50 Mg Cap 50 Mg PO Q6HR PRN Trazodone (Trazodone HCl) 150 Mg Tab 150 Mg PO HS Active Ordered Medications Current Medications Medications (Trade) Dose Ordered Sig/Eduardo Route PRN Reason Start Time Stop Time Status Last Admin Dose Admin Sodium Chloride (NS Flush) 2 ml UNSCH PRN IVF FLUSH AFTER USING IV ACCESS 07/08/16 23:45 Allopurinol (Zyloprim) 200 mg DAILY PO 07/09/16 09:00 Amlodipine Besylate (Norvasc) 10 mg DAILY PO 07/09/16 09:00 Aspirin (Ecotrin Ec) 81 mg DAILY PO 07/09/16 09:00 Furosemide (Lasix) 20 mg DAILY PO 07/09/16 09:00 Levothyroxine Sodium (Synthroid) 125 mcg DAILY@0600 PO 07/09/16 06:00 Lisinopril (Prinivil) 5 mg DAILY PO 07/09/16 09:00 Terazosin HCl (Hytrin) 10 mg HS PO 07/09/16 21:00 Trazodone HCl (Desyrel) 150 mg HS PO 07/09/16 21:00 Acetaminophen (Tylenol) 650 mg Q6H PRN PO PAIN 1-10 AND/OR FEVER >101F 07/09/16 03:15 Famotidine (Pepcid) 10 mg Q12HR PO 07/09/16 09:00 Ondansetron HCl (Zofran Inj) 4 mg Q6H PRN IV NAUSEA OR VOMITING 07/09/16 03:15 Metoclopramide HCl (Reglan Inj) 5 mg Q6H PRN IV NAUSEA OR VOMITING 07/09/16 03:15 Heparin Sodium (Porcine) (Heparin Inj) 5,000 units Q8HR SQ 07/09/16 06:00 Miscellaneous Information 1 [id number] XX 07/09/16 03:15 Chlorhexidine Gluconate (Chlorhexidine 2% Cloth) 3 pack Taper DAILY@04 TOP 07/09/16 04:00 07/05/17 03:59 Chlorhexidine Gluconate (Chlorhexidine 2% Cloth) 3 pack UNSCH PRN TOP HYGIENIC CARE 07/09/16 03:15 Methylprednisolone Sodium Succinate 40 mg 40 mg Q6HR IV PUSH 07/09/16 06:00 Azithromycin 500 mg/Sodium Chloride 250 ml @ 250 mls/hr Q24H IV 07/09/16 04:00 07/09/16 04:40 Aztreonam/Sodium Chloride (Azactam Inj/NS Inj) 100 ml @ 200 mls/hr Q8H IV 07/09/16 05:00 Family History Noncontributory Social History No alcohol or illicit drug abuse Physical Exam Vital Signs Vital Signs Date Time Temp Pulse Resp B/P Pulse Ox O2 Delivery O2 Flow Rate FiO2 07/09/16 02:59 94 40 07/09/16 02:15 95 15.00 07/09/16 00:34 90 85 07/08/16 23:55 95 40 07/08/16 23:41 24 89 Simple Mask 07/08/16 23:40 85 Simple Mask 6 07/08/16 23:36 97.2 68 18 126/58 88 Physical Exam GENERAL: Well-nourished, well-developed patient. SKIN: Warm and dry. HEAD: Normocephalic. EYES: No scleral icterus. No injection or drainage. NECK: Supple, trachea midline. No JVD or lymphadenopathy. CARDIOVASCULAR: Regular rate and rhythm without murmurs, gallops, or rubs. RESPIRATORY: Breath sounds equal bilaterally. No accessory muscle use. GASTROINTESTINAL: Abdomen soft, non-tender, nondistended. MUSCULOSKELETAL: No cyanosis, or edema. BACK: Nontender without obvious deformity. No CVA tenderness. EXTREMITIES: No clubbing cyanosis or edema Laboratory Laboratory Tests Test 07/09/16 07/09/16 00:24 00:35 White Blood Count 10.4 Red Blood Count 3.74 Hemoglobin 11.0 Hematocrit 34.5 Mean Corpuscular Volume 92.4 Mean Corpuscular Hemoglobin 29.5 Mean Corpuscular Hemoglobin 31.9 Concent Red Cell Distribution Width 16.5 Platelet Count 281 Mean Platelet Volume 9.3 Neutrophils (%) (Auto) 76.3 Lymphocytes (%) (Auto) 10.1 Monocytes (%) (Auto) 10.9 Eosinophils (%) (Auto) 1.9 Basophils (%) (Auto) 0.8 Neutrophils # (Auto) 8.0 Lymphocytes # (Auto) 1.1 Monocytes # (Auto) 1.1 Eosinophils # (Auto) 0.2 Basophils # (Auto) 0.1 CBC Comment DIFF FINAL Differential Comment Sodium Level 136 Potassium Level 4.6 Chloride Level 98 Carbon Dioxide Level 29.2 Anion Gap 9 Blood Urea Nitrogen 18 Creatinine 2.68 Estimat Glomerular Filtration 17 Rate Random Glucose 107 Calcium Level 8.6 Blood Gas Puncture Site LT FOOT Blood Gas Patient Temperature 98.6 Blood Gas HCO3 28 Blood Gas Base Excess 3.0 Blood Gas Oxygen Saturation 92 Arterial Blood pH 7.34 Arterial Blood Partial 55 Pressure CO2 Arterial Blood Partial 74 Pressure O2 Arterial Blood Oxygen Content 14.1 Arterial Blood 1.1 Carboxyhemoglobin Arterial Blood Methemoglobin 0.5 Blood Gas Hemoglobin 10.9 Oxygen Delivery Device BIPAP Blood Gas Ventilator Setting 16 IPAP 8 EPAP Blood Gas Inspired Oxygen 85 Result Diagram: 07/09/16 0024 07/09/16 0024 Imaging Last 24 hours Impressions Chest X-Ray 07/08/16 2345 Signed Impressions: Service Date/Time: Saturday, July 09, 2016 00:14 - CONCLUSION: No acute disease. Cheo Clark Jr., MD Assessment and Plan Assessment and Plan Respiratory failure - COPD exacerbation - IV antibiotics - Steroid - Improving on BiPAP - Repeat ABG - Repeat CXR tomorrow Hypertension - Resume home meds - Terazosin - Lisinopril - Norvasc - Lasix Diabetes - Insulin sliding Hypothyroidism - Levothyroxine DVT GI prophylaxis - Protonix - Subcutaneous heparin Critical Care: The total critical care time was 35 minutes. Time to perform other separately billable procedures was not included in the critical care time. Alnoso Cheng MD Jul 09, 2016 03:21
[2016-07-09] MEDS ORDERED: AZTREONAM INJ 2,000 MG in SODIUM CHLORIDE 0.9% INJ 100 ML IV SCH (03:30)
[2016-07-09] MEDS: AZITHROMYCIN INJ 500 MG in SODIUM CHLOR 0.9% 250 ML INJ 250 ML IV SCH (04:40)
[2016-07-09] MEDS: HEPARIN SODIUM - SQ 10,000 UNITS/ML VIAL SQ SCH ×3 (06:00→21:05)
[2016-07-09] MEDS ORDERED: DEXTROSE 50% IN WATER 50 ML VIAL(D50) IV PUSH PRN (06:45)
[2016-07-09] MEDS ORDERED: GLUCAGON 1 MG/ML VIAL OTHER PRN (06:45)
[2016-07-09] MEDS ORDERED: INSULIN ASPART SUPPLEMENTAL SCALE SQ SCH (07:00)
[2016-07-09] MEDS ORDERED: FUROSEMIDE 20 MG TAB PO SCH (09:00)
[2016-07-09] MEDS ORDERED: LISINOPRIL 5 MG TAB PO SCH (09:00)
[2016-07-09 09:22] LABS: BLOOD GAS CARBOXYHEMOGLOBIN 1.4 % (0-4); BLOOD GAS HCO3 27 mmol/L (22-26); BLOOD GAS METHEMOGLOBIN 0.9 % (0-2); BLOOD GAS O2 HGB SATURATION 88 % (90-100); BLOOD GAS OXYGEN CONTENT 13.4 Vol % (12.0-20.0); BLOOD GAS PCO2 55 mmHg (38-42); BLOOD GAS PO2 67 mmHg (61-120); BLOOD GAS TOTAL HGB 10.8 G/DL (12.0-16.0); CRITICAL VALUE YES; OXYGEN DEVICE BIPAP; TEMP CORR TO 98.6
[2016-07-09 09:23] LABS: DRAW SITE RT RADIAL; FIO2 35 %; NUMBER OF ARTERIAL PUNCTURES 1; STAT YES; ULNAR PULSE PRESENT; VENT SETTINGS EPAP 8/IPAP 16
[2016-07-09 10:02] LABS: AUTOMATED NEUTROPHIL # 10.4 TH/MM3 (1.8-7.7); BASOPHIL % 0.2 % (0.0-2.0); HEMO FLAGS DIFF FINAL; LYMPH % 4.4 % (9.0-44.0); LYMPHOCYTE # 0.5 TH/MM3 (1.0-4.8); MEAN CELL VOLUME 92.5 FL (80.0-100.0); MEAN CORPUSCULAR HEMOGLOBIN 28.6 PG (27.0-34.0); MEAN CORPUSCULAR HGB CONC 30.9 % (32.0-36.0); MONO % 1.5 % (0.0-8.0); NEUT % 93.9 % (16.0-70.0); PLATELET COUNT 275 TH/MM3 (150-450); RED BLOOD COUNT 3.79 MIL/MM3 (4.00-5.30); RED CELL DISTRIBUTION WIDTH 16.6 % (11.6-17.2); WHITE BLOOD COUNT 11.1 TH/MM3 (4.0-11.0)
[2016-07-09 10:21] LABS: ANION GAP 12 MEQ/L (5-15); AST (GOT) 10 U/L (15-37); BICARBONATE 27.5 MEQ/L (21.0-32.0); BLOOD UREA NITROGEN 24 MG/DL (7-18); CHLORIDE 94 MEQ/L (98-107); GLOMERULAR FILTRATION RATE 13 ML/MIN (>89); POTASSIUM 3.9 MEQ/L (3.5-5.1); SODIUM (NA) 133 MEQ/L (136-145)
[2016-07-09 10:31] LABS: ALKALINE PHOSPHATASE 112 U/L (45-117); ALT (GPT) 17 U/L (10-53); TOTAL BILIRUBIN ADULT 0.3 MG/DL (0.2-1.0)
[2016-07-09] MEDS: methylPREDNISolone SOD SUCC 40 MG/1 ML VIAL IV PUSH SCH ×3 (10:35→21:06)
[2016-07-09] MEDS: ALLOPURINOL 100 MG TAB PO SCH (10:36)
[2016-07-09] MEDS: FAMOTIDINE 20 MG TAB PO SCH ×2 (10:36→21:05)
[2016-07-09] MEDS: LEVOTHYROXINE SODIUM 125 MCG TAB PO SCH (10:36)
[2016-07-09] MEDS: ASPIRIN EC 81 MG TABEC PO SCH (10:36)
[2016-07-09] MEDS: SODIUM CHLOR 0.9% 1000 ML INJ 1,000 ML IV SCH ×2 (10:42→21:04)
[2016-07-09] MEDS: AZTREONAM 1,000 MG/NS 100 ML IV SCH ×6 (10:52→21:04)
[2016-07-09 14:25] LABS: BACTERIA, URINE MOD /hpf; BLOOD, URINE NEG (NEG); GLUCOSE,URINE NEG (NEG); HYALINE CAST, URINE 8 /lpf (RARE); KETONE, URINE NEG (NEG); MUCUS URINE FEW /lpf (OCC); NITRITE,URINE NEG (NEG); SQUAMOUS EPITHELIAL CELL URINE 1 /hpf (0-5); URINE COLOR YELLOW (YELLW/STRAW)
[2016-07-09 14:33] LABS: COMMENT (UR) CATH-CULTURE IND; CULTURE IF INDICATED CATH CULTURE IND
--- NOTE | 2016-07-09 14:46 | MB ---
cc: SHALOM RAUSCH M.D. DATE OF CONSULTATION: 07/09/2016. REASON FOR CONSULTATION: Respiratory failure and exacerbation COPD. HISTORY OF PRESENT ILLNESS: Mrs. Nelson is a 75-year-old female with known history of COPD who presents with increasing lethargy, increasing shortness of breath with significant hypoxemia presently on BiPAP therapy to maintain oxygenation was well as ventilation. The patient denies history of fever, chills, hemoptysis, has no cough or expectoration. PAST MEDICAL HISTORY: 1. COPD. 2. Diabetes mellitus. 3. Hypertension. 4. Hyperlipidemia. 5. Had a previous cholecystectomy. 6. Hysterectomy. 7. Appendectomy. MEDICATIONS: Medications at home include: 1. Terazosin. 2. Lasix. 3. Allopurinol. 4. Lisinopril. 5. Glipizide. 6. Janumet. 7. Amlodipine. 8. Atorvastatin. 9. Vitamin tablets. 10. Levothyroxine. 11. Aspirin. 12. Nebulized albuterol. 13. Trazodone. 14. Vistaril as needed. ALLERGIES: 1. AMOXICILLIN. 2. CORTISONE. 3. E-MYCIN. 4. PENICILLIN. FAMILY HISTORY: Noncontributory. SOCIAL HISTORY: Does not smoke or drink at present. REVIEW OF SYSTEMS: A twelve-point review of systems as per the history of present illness and past history otherwise negative. PHYSICAL EXAMINATION: VITAL SIGNS: Temperature 97.2, pulse 70, respirations 22, blood pressure 126/60, oxygen saturation 95% on 40% inspired oxygen fraction and BiPAP. HEAD, EYES, EARS, NOSE, THROAT: Unremarkable. Eyes without icterus. NECK: Without adenopathy, thyroid enlargement, central trachea. CHEST: No dullness to percussion. Distant breath sounds. CARDIAC: PMI distant. S1 and S2 audible. There is a 1/6 systolic ejection murmur left sternal border. ABDOMEN: Lax. Bowel sounds audible. EXTREMITIES: No cyanosis, clubbing or edema. LABS: White count 10,000, hemoglobin 11, hematocrit 34, BUN 18, creatinine 2.6. Sodium 136, potassium 4.6. Arterial blood gas shows pH 7.31, pC02 of 55, p02 of 67. IMAGING STUDIES: Chest x-ray shows no acute disease. IMPRESSION: 1. Hypoxic and hypercarbic respiratory failure. 2. Acute on chronic respiratory failure. 3. Morbid obesity. 4. COPD. 5. Hypertension. 6. Diabetes mellitus. 7. Hyperlipidemia. PLAN: The patient has COPD and is being treated for same with exacerbation at present; however, she is morbidly obese with body habitus suggesting underlying sleep disorder of breathing, obstructive sleep apnea and/or obesity hypoventilation need to be further evaluated. Will continue oxygen therapy and bronchodilator therapy. She may require BiPAP therapy now and on a long-term basis post discharge polysomnographic evaluation will be undertaken to assess BiPAP therapy if required long-term. I do thank you for asking me to partake in Mrs. Nelson' care. Shalom Rausch MD WWW/Amilcar /1:28 PM /2:38 PM
--- NOTE | 2016-07-09 15:29 | RADRPT ---
EXAM DATE/TIME: 07/09/2016 13:02 [facility] COMPARISON: No previous studies available for comparison. INDICATIONS : Abnormal labs. MEDICAL HISTORY : Hypercholesterolemia. Gastroesophageal reflux disease. Chronic obstructive pulmonary disease. Hyperte nsion. Arthritis. Diabetes type 2. SURGICAL HISTORY : Tonsillectomy. Hysterectomy. Cholecystectomy. Appendectomy. ENCOUNTER: Initial ACUITY: 1 day PAIN SCORE: Nonresponsive. LOCATION: Bilateral flank MEASUREMENTS: RIGHT KIDNEY: 9.3 x 4.5 x 5.2 cm LEFT KIDNEY: 9.0 x 5.2 x 5.2 cm FINDINGS: RIGHT KIDNEY: Renal cortex is normal in thickness and echotexture. No hydronephrosis, stone, or mass. LEFT KIDNEY: Renal cortex is normal in thickness and echotexture. No hydronephrosis, stone, or mass. BLADDER: Dave catheter within the bladder. CONCLUSION: Negative renal sonogram. Cheo Bentley MD on July 09, 2016 at 15:26 Board Certified Radiologist. This report was verified electronically.
--- NOTE | 2016-07-09 16:18 | MB ---
cc: NIESHA REYNOSO MD DATE OF CONSULTATION 07/09/2016 REASON FOR CONSULTATION Elevated BUN and creatinine for evaluation. HISTORY OF PRESENT ILLNESS This is a 75-year-old female with past medical history of hypertension, diabetes mellitus, hyperlipidemia, chronic obstructive pulmonary disease, possible chronic kidney disease who was admitted with worsening shortness of breath. I was called to see the patient because of elevated BUN and creatinine. The patient denies any known history of renal disease but when she came in here the creatinine was 2.67 and it has increased to 3.5. The patient previously had creatinine of 1.6-1.7, this was in the last 6 months. The patient has this gradual worsening of shortness of breath and the blood gas it was shown that she has been retaining carbon dioxide and has low oxygen saturation. The patient is currently on BiPap. She denies any nausea or vomiting. She has this cough with whitish sputum. No chest pain. No nausea. No history of diarrhea. PAST MEDICAL HISTORY 1. Hypertension. 2. Diabetes mellitus. 3. Hyperlipidemia. 4. Chronic obstructive pulmonary disease. 5. Chronic kidney disease. PAST SURGICAL HISTORY 1. Hysterectomy. 2. Appendicectomy. 3. Cholecystectomy. 4. History of bladder surgery. REVIEW OF SYSTEMS The patient has generalized weakness, feeling tired. Has worsening shortness of breath, cough with whitish sputum. No chest pain. No palpitation. Has occasional nausea. There is no vomiting. No abdominal pain. No history of diarrhea. She was confused before but it seems like it is getting better, although she is still not completely oriented. SOCIAL HISTORY . There is no history of heavy alcoholism. She has past history of smoking, stopped about six years ago. ALLERGIES SHE IS ALLERGIC TO AMOXICILLIN, CORTISONE, ERYTHROMYCIN AND PENICILLIN. MEDICATIONS Currently she is on: 1. Normal saline at 200 an hour. 2. Allopurinol 200 mg once a day. 3. Amlodipine 10 mg daily. 4. Aspirin 81 mg once a day. 5. Synthroid 125 mcg daily. 6. Hytrin 10 mg q.h.s. 7. Trazodone 150 mg q.h.s. 8. DuoNeb nebulizer. 9. Pepcid 10 mg q.12. 10. Azithromycin 500 mg q.24h. 11. Insulin aspart sliding scale. 12. Solu-Medrol 40 mg q. 6-hour. 13. Aztreonam 1 gram q. 8-hour. PHYSICAL EXAMINATION GENERAL: On examination the patient is awake, alert. She is not fully oriented in moderate respiratory distress. VITAL SIGNS: Her last blood pressure is 146/65, temperature 98, oxygen saturation 94-97% on BiPap. There is no documented hypotensive episode. HEENT: Pupils are mid constricted. Nonicteric sclera, conjunctiva pale. NECK: Supple. JVD is not elevated. LUNGS: The patient has bilateral decreased air entry with diffuse wheezing. CARDIOVASCULAR: Heart S1-S2, regular rhythm. ABDOMEN: Obese. Soft. Lax. There is no tenderness. EXTREMITIES: She has mild edema. LABORATORY DATA Investigations, WBC count 11.1, hemoglobin 10.8, platelet count of 275, neutrophils 93.9. Sodium 133, potassium 3.9, chloride 94, bicarb 27.5, BUN 24, creatinine 3.5, glucose 263. AST is 10, ALT is 17. TSH is 0.53. Urinalysis showing protein of 30. IMAGING STUDIES The patient has chest x-ray done which shows that lung garibay clear. CT scan of brain was done which was negative for any acute event. ASSESSMENT/PLAN 1. Chronic kidney disease with acute kidney injury. 2. COPD with exacerbation. 3. Respiratory failure. 4. Possible bronchitis. 5. Hypertension. 6. Diabetes mellitus. 7. Anemia. The patient has baseline creatinine of 1.6-1.7 with mild to negative proteinuria, most likely the patient has underlying chronic kidney disease because of hypertensive or diabetic renal disease and now developed acute kidney injury. Etiology of acute kidney injury either could be ATN or possibility of interstitial nephritis or maybe dehydration. She was on diuretic and which has been stopped. The chest x-ray is clear. She is getting IV fluid now. I will check the urine sodium osmolality and also urine for eosinophils and ultrasound of the kidneys. Thank you for the consultation. I will follow the patient while she is in the hospital. MD SHANIKA Jean Baptiste/NATI /2:51 PM /3:59 PM
[2016-07-09 19:49] LABS: BLOOD GAS BASE EXCESS -0.1 mmol/L (-2-2); BLOOD GAS CARBOXYHEMOGLOBIN 1.4 % (0-4); BLOOD GAS HCO3 25 mmol/L (22-26); BLOOD GAS O2 HGB SATURATION 94 % (90-100); BLOOD GAS OXYGEN CONTENT 13.4 Vol % (12.0-20.0); BLOOD GAS PCO2 48 mmHg (38-42); BLOOD GAS PO2 81 mmHg (61-120); BLOOD GAS TOTAL HGB 10.1 G/DL (12.0-16.0); CRITICAL VALUE NO; OXYGEN DEVICE BiPAP; TEMP CORR TO 98.6
[2016-07-09 19:50] LABS: DRAW SITE RT RADIAL; FIO2 50 %; NUMBER OF ARTERIAL PUNCTURES 1; STAT NO; ULNAR PULSE PRESENT; VENT SETTINGS IPAP18/EPAP10
[2016-07-09] MEDS: TERAZOSIN HCL 5 MG CAP PO SCH (21:05)
[2016-07-09] MEDS: traZODone HCL 50 MG TAB PO SCH (21:05)
[2016-07-09] MEDS: INSULIN ASPART SUPPLEMENTAL SCALE SQ SCH (21:10)
[2016-07-10] VITALS (16 sets, daily range): BP systolic 99–170; BP diastolic 61–74; PULSE 76–95; RESP 16–25; TEMP 98–98.9; O2SAT 89–100
[2016-07-10] MEDS: AZITHROMYCIN INJ 500 MG in SODIUM CHLOR 0.9% 250 ML INJ 250 ML IV SCH (03:17)
[2016-07-10] MEDS: INSULIN ASPART SUPPLEMENTAL SCALE SQ SCH ×4 (03:18→17:55)
[2016-07-10] MEDS: RESP: ALBUTEROL 2.5 MG/IPRATROPIUM 0.5 MG NEB (SCH) INH ×5 (03:27→19:28)
[2016-07-10 04:52] LABS: AUTOMATED NEUTROPHIL # 14.1 TH/MM3 (1.8-7.7); BASOPHIL % 0.1 % (0.0-2.0); HEMO FLAGS DIFF FINAL; LYMPHOCYTE # 0.5 TH/MM3 (1.0-4.8); MEAN CORPUSCULAR HGB CONC 31.5 % (32.0-36.0); MONO % 2.7 % (0.0-8.0); NEUT % 94.2 % (16.0-70.0); PLATELET COUNT 296 TH/MM3 (150-450); RED BLOOD COUNT 3.69 MIL/MM3 (4.00-5.30); RED CELL DISTRIBUTION WIDTH 16.2 % (11.6-17.2)
[2016-07-10] MEDS: SODIUM CHLOR 0.9% 1000 ML INJ 1,000 ML IV SCH ×2 (05:13→13:40)
[2016-07-10 05:25] LABS: ALT (GPT) 15 U/L (10-53); ANION GAP 11 MEQ/L (5-15); AST (GOT) 10 U/L (15-37); BICARBONATE 27.3 MEQ/L (21.0-32.0); BLOOD UREA NITROGEN 28 MG/DL (7-18); CHLORIDE 99 MEQ/L (98-107); GLOMERULAR FILTRATION RATE 15 ML/MIN (>89); MAGNESIUM 1.8 MG/DL (1.5-2.5); SODIUM (NA) 137 MEQ/L (136-145)
[2016-07-10 05:27] LABS: ALKALINE PHOSPHATASE 96 U/L (45-117); TOTAL BILIRUBIN ADULT 0.3 MG/DL (0.2-1.0)
--- NOTE | 2016-07-10 06:13 | RADRPT ---
EXAM DATE/TIME: 07/10/2016 04:48 [facility] COMPARISON: CHEST SINGLE AP, July 09, 2016, 0:14. INDICATIONS : Respiratory failure.. MEDICAL HISTORY : Chronic obstructive pulmonary disease. SURGICAL HISTORY : None. ENCOUNTER: Subsequent ACUITY: 3 days PAIN SCORE: 6/10 LOCATION: Bilateral chest FINDINGS: A single view of the chest demonstrates the lungs to be symmetrically aerated without evidence of mas s, infiltrate or effusion. There may be some mild pulmonary venous congestion. The heart size is enla rged but stable. The bony structures are stable.. CONCLUSION: Mild pulmonary venous congestion. Otherwise stable examination compared to the prior study. Shahid Cardenas MD on July 10, 2016 at 6:11 Board Certified Radiologist. This report was verified electronically.
[2016-07-10] MEDS: HEPARIN SODIUM - SQ 10,000 UNITS/ML VIAL SQ SCH ×3 (06:23→21:05)
[2016-07-10] MEDS: methylPREDNISolone SOD SUCC 40 MG/1 ML VIAL IV PUSH SCH ×2 (06:23→21:06)
[2016-07-10] MEDS: AZTREONAM 1,000 MG/NS 100 ML IV SCH ×6 (06:24→21:06)
[2016-07-10] MEDS: LEVOTHYROXINE SODIUM 125 MCG TAB PO SCH (06:24)
[2016-07-10 07:11] LABS: BACTERIA, URINE RARE /hpf; BLOOD, URINE MOD (NEG); GLUCOSE,URINE NEG (NEG); GRANULAR CAST, URINE 4 /lpf; HYALINE CAST, URINE 6 /lpf (RARE); KETONE, URINE NEG (NEG); MUCUS URINE FEW /lpf (OCC); NITRITE,URINE NEG (NEG); SQUAMOUS EPITHELIAL CELL URINE <1 /hpf (0-5); URINE COLOR YELLOW (YELLW/STRAW)
[2016-07-10 07:17] LABS: COMMENT (UR) CULTURE INDICATED; CULTURE IF INDICATED CULTURE INDICATED
[2016-07-10] MEDS: FAMOTIDINE 20 MG TAB PO SCH ×2 (09:46→21:05)
[2016-07-10] MEDS: ASPIRIN EC 81 MG TABEC PO SCH (09:46)
[2016-07-10] MEDS: ALLOPURINOL 100 MG TAB PO SCH (09:47)
--- NOTE | 2016-07-10 10:01 | HHI.NPPN ---
Subjective General Problems: Anemia Renal Failure: Chronic, Acute, Stage III History of Present Illness 75-year-old female with past medical history of hypertension, diabetes mellitus, hyperlipidemia, chronic obstructive pulmonary disease, possible chronic kidney disease who was admitted with worsening shortness of breath. I was called to see the patient because of elevated BUN and creatinine. Additional Remarks Patient is alert, breathing is better, with NC, 5 liters. Review of Systems General Constitutional: Fatigue Respiratory Lungs: SOB, Cough, Wheeze Cardiovascular Cardiac: Edema, GRADY Objective Data Data 07/09/16 07/10/16 19:00 07:00 Intake Total 346 ml 1212 ml Output Total 25 ml 400 ml Balance 321 ml 812 ml Intake IV Total 346 ml 1212 ml Output Urine Total 25 ml 400 ml Vital Signs Date Time Temp Pulse Resp B/P Pulse Ox O2 Delivery O2 Flow Rate FiO2 07/10/16 09:20 96 Nasal Cannula 4.00 07/10/16 08:00 98.0 81 20 164/72 89 07/10/16 08:00 81 07/10/16 06:15 91 Non-Rebreather 12.00 07/10/16 06:00 76 07/10/16 04:10 96 50 07/10/16 04:00 98.8 76 20 157/71 97 07/10/16 04:00 80 07/10/16 02:00 78 07/10/16 01:19 100 50 07/10/16 00:00 90 07/10/16 00:00 98.9 90 16 99/61 100 07/09/16 22:00 73 07/09/16 20:54 93 50 07/09/16 20:15 95 Non-Rebreather 15.00 07/09/16 20:00 76 07/09/16 20:00 98.7 76 22 140/67 97 07/09/16 18:00 66 07/09/16 16:00 68 07/09/16 16:00 98.8 63 13 132/63 96 07/09/16 15:36 95 50 07/09/16 14:00 85 07/09/16 12:00 71 07/09/16 12:00 98.0 71 24 146/65 94 07/09/16 11:49 97 07/09/16 10:00 78 -: 07/10/16 0417 07/10/16 0417 Microbiology 07/09/16 Urine Culture, Received Pending 07/10/16 Urine Culture, Received Pending Physical Exam General Appearance: No Acute Distress, Comfortable Eyes Eye Exam: Pupils Equal Throat Throat Exam: Oral Mucosa [place] & Moist Neck Neck Exam: Neck Supple Pulmonary Resp Exam: No Distress, Crackles, Rhonchi, Decreased Bases, Diminished Breath Sounds Cardiology CV Exam: Regular, Normal Sinus Rhythm Gastrointestinal/Abdomen GI Exam: Soft, Non-Tender, Bowel Sounds Present, Distended Extremeties Extremities Exam: Trace Edema Neurologic Neuro Exam: Alert, Awake, Oriented Psychiatric Psych Exam: Appropriate Responses Assessment/Plan Assessment Summary: RED/Acute Renal Failure, CKD Stage III Problem List: (1) Bronchitis (2) Decompensated COPD with exacerbation (chronic obstructive pulmonary disease) (3) CO2 narcosis (4) Acute respiratory failure with hypoxia and hypercarbia (5) Chronic kidney disease (CKD) (6) Acute kidney injury Plan Patient has some improvement in the Creatinine to 3.0. Urine out put is adequate. BP is stable. Continue IVF and antibiotics. Renal U/S noted. Has no Eosinophiluria. 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 Develop RED, possibly ATN/Pre renal. Problem Qualifiers (1) Chronic kidney disease (CKD): Qualified Code: N18.3 - Chronic kidney disease (CKD), stage 3 (moderate) Tess Garcias MD Jul 10, 2016 10:01
--- NOTE | 2016-07-10 10:03 | HHI.CCPN ---
Subjective Remarks/Hospital Course 75 -year-old female with history of COPD on oxygen and nebulizers at home, hypertension diabetes , the patient's called paramedics because she was confused and feeling out of it. She admits to some confusion today. Duration one day. Denies head injury or fever. 07/10 Patient is off BIPAP on 4L oxygen with good sats. ABG from last night showed improvements in her resp acidosis. Renal function improving with Cr: 3.0 from 3.5. Objective Vital Signs Date Time Temp Pulse Resp B/P Pulse Ox O2 Delivery O2 Flow Rate FiO2 07/10/16 09:20 96 Nasal Cannula 4.00 07/10/16 08:00 98.0 81 20 164/72 07/10/16 04:10 50 Intake and Output 07/09/16 07/09/16 07/10/16 08:00 16:00 00:00 Intake Total 346 ml 607 ml Output Total 25 ml 200 ml Balance 321 ml 407 ml Result Diagram: 07/10/16 0417 07/10/16 0417 Other Results Laboratory Tests Test 07/09/16 07/09/16 07/10/16 07/10/16 13:50 19:38 04:17 06:08 Urine Color YELLOW YELLOW Urine Turbidity HAZY HAZY Urine pH 5.0 5.0 Urine Specific [place] 1.021 1.013 Urine Protein 30 mg/dL TRACE mg/dL Urine Glucose (UA) NEG mg/dL NEG mg/dL Urine Ketones NEG mg/dL NEG mg/dL Urine Occult Blood NEG MOD Urine Nitrite NEG NEG Urine Bilirubin NEG NEG Urine Urobilinogen LESS THAN 2.0 LESS THAN 2.0 MG/DL MG/DL Urine Leukocyte Esterase NEG LARGE Urine WBC 2 /hpf 5 /hpf Urine Squamous Epithelial 1 /hpf <1 /hpf Cells Urine Amorphous Sediment FEW Urine Bacteria MOD /hpf RARE /hpf Urine Hyaline Casts 8 /lpf 6 /lpf Urine Mucus FEW /lpf FEW /lpf Microscopic Urinalysis Comment CATH-CULTURE CULTURE IND INDICATED Urine Osmolality 299 MOSM/KG Urine Random Sodium 35 MEQ/L Blood Gas Puncture Site RT RADIAL Blood Gas Patient Temperature 98.6 Blood Gas HCO3 25 mmol/L Blood Gas Base Excess -0.1 mmol/L Blood Gas Oxygen Saturation 94 % Arterial Blood pH 7.34 Arterial Blood Partial 48 mmHg Pressure CO2 Arterial Blood Partial 81 mmHg Pressure O2 Arterial Blood Oxygen Content 13.4 Vol % Arterial Blood 1.4 % Carboxyhemoglobin Arterial Blood Methemoglobin 1.0 % Blood Gas Hemoglobin 10.1 G/DL Oxygen Delivery Device BiPAP Blood Gas Ventilator Setting IPAP18/EPAP10 Blood Gas Inspired Oxygen 50 % White Blood Count 15.0 TH/MM3 Red Blood Count 3.69 MIL/MM3 Hemoglobin 10.7 GM/DL Hematocrit 34.0 % Mean Corpuscular Volume 92.0 FL Mean Corpuscular Hemoglobin 29.0 PG Mean Corpuscular Hemoglobin 31.5 % Concent Red Cell Distribution Width 16.2 % Platelet Count 296 TH/MM3 Mean Platelet Volume 9.1 FL Neutrophils (%) (Auto) 94.2 % Lymphocytes (%) (Auto) 3.0 % Monocytes (%) (Auto) 2.7 % Eosinophils (%) (Auto) 0.0 % Basophils (%) (Auto) 0.1 % Neutrophils # (Auto) 14.1 TH/MM3 Lymphocytes # (Auto) 0.5 TH/MM3 Monocytes # (Auto) 0.4 TH/MM3 Eosinophils # (Auto) 0.0 TH/MM3 Basophils # (Auto) 0.0 TH/MM3 CBC Comment DIFF FINAL Differential Comment Sodium Level 137 MEQ/L Potassium Level 4.0 MEQ/L Chloride Level 99 MEQ/L Carbon Dioxide Level 27.3 MEQ/L Anion Gap 11 MEQ/L Blood Urea Nitrogen 28 MG/DL Creatinine 3.08 MG/DL Estimat Glomerular Filtration 15 ML/MIN Rate Random Glucose 200 MG/DL Calcium Level 8.8 MG/DL Phosphorus Level 4.6 MG/DL Magnesium Level 1.8 MG/DL Total Bilirubin 0.3 MG/DL Aspartate Amino Transf 10 U/L (AST/SGOT) Alanine Aminotransferase 15 U/L (ALT/SGPT) Alkaline Phosphatase 96 U/L Total Protein 6.9 GM/DL Albumin 3.2 GM/DL Urine RBC 8 /hpf Urine WBC Clumps RARE Urine Granular Casts 4 /lpf Urine Eosinophils NONE SEEN /HPF Imaging Last Impressions Chest X-Ray 07/10/16 0000 Signed Impressions: Service Date/Time: Sunday, July 10, 2016 04:48 - CONCLUSION: Mild pulmonary venous congestion. Otherwise stable examination compared to the prior study. Shahid Cardenas MD Renal Ultrasound 07/09/16 0000 Signed Impressions: Service Date/Time: Saturday, July 09, 2016 13:02 - CONCLUSION: Negative renal sonogram. Cheo Bentley MD Head CT 07/08/16 0000 Signed Impressions: Service Date/Time: Saturday, July 09, 2016 02:21 - CONCLUSION: Normal examination. Cheo Clark Jr., MD Objective Remarks GENERAL: Well-nourished, well-developed patient. SKIN: Warm and dry. HEAD: Normocephalic. EYES: No scleral icterus. No injection or drainage. NECK: Supple, trachea midline. No JVD or lymphadenopathy. CARDIOVASCULAR: Regular rate and rhythm without murmurs, gallops, or rubs. RESPIRATORY: Breath sounds equal bilaterally. No accessory muscle use. GASTROINTESTINAL: Abdomen soft, non-tender, nondistended. MUSCULOSKELETAL: No cyanosis, or edema. BACK: Nontender without obvious deformity. No CVA tenderness. EXTREMITIES: No clubbing cyanosis or edema A/P Assessment and Plan 1)Acute hypercapnic resp Insuff- improving 2) COPD exacerbation 3)ARF 4)Hypertension 5)Diabetes 6)Leukocytosis 7)Hypothyroidism 8)Anemia Plan Neuro: Awake and alert Pulm: Continue with oxygen keep sat >92% Bronchodilators, decrease solumederol 40mg Q12 NIPPV PRN for resp distress. Pulm is following -Dr. Rausch CV: Monitor HR and BP keep MAP>65mmHg On Norvasc 10mg daily, ASA, Hytrin : Monitor renal function, I/O's, avoid nephrotoxins Cr: 3.0 today from 3.5. Continue with IVF NS@100ml/hr Renal US: within normal GI: On PO diet ID: Continue with abx( Aztreonam, Azithromycin) monitor for signs of infections Heme: Monitor CBC Endo: On SSI ( medium scale) , taper IV steroids which should help with glycemic control On Synthroid 125mcg daily-TSH: 0.53 GI prophylaxis- on Pepcid DVT prophylaxis- On Heparin SQ Will sign off and transfer care to [facility] Level 3 Nixon Waite MD Jul 10, 2016 10:03
--- NOTE | 2016-07-10 17:44 | HHI.PR ---
Subjective Remarks no sob at rest sat 95% NC Objective Vital Signs Date Time Temp Pulse Resp B/P Pulse Ox O2 Delivery O2 Flow Rate FiO2 07/10/16 14:00 90 07/10/16 12:00 87 07/10/16 12:00 98.8 87 24 170/74 91 07/10/16 10:00 95 07/10/16 09:20 96 Nasal Cannula 4.00 07/10/16 08:00 98.0 81 20 164/72 89 07/10/16 08:00 81 07/10/16 06:15 91 Non-Rebreather 12.00 07/10/16 06:00 76 07/10/16 04:10 96 50 07/10/16 04:00 98.8 76 20 157/71 97 07/10/16 04:00 80 07/10/16 02:00 78 07/10/16 01:19 100 50 07/10/16 00:00 90 07/10/16 00:00 98.9 90 16 99/61 100 07/09/16 22:00 73 07/09/16 20:54 93 50 07/09/16 20:15 95 Non-Rebreather 15.00 07/09/16 20:00 76 07/09/16 20:00 98.7 76 22 140/67 97 07/09/16 18:00 66 I/O 07/09/16 07/09/16 07/09/16 07/10/16 07/10/16 07/10/16 07:00 15:00 23:00 07:00 15:00 23:00 Intake Total 346 ml 607 ml 605 ml 710 ml Output Total 25 ml 200 ml 200 ml 250 ml Balance 321 ml 407 ml 405 ml 460 ml Intake IV Total 346 ml 607 ml 605 ml 710 ml Output Urine Total 25 ml 200 ml 200 ml 250 ml Result Diagram: 07/10/16 0417 07/10/16416 Objective Remarks GENERAL: SKIN: Warm and dry. HEAD: Atraumatic. Normocephalic. EYES: Pupils equal and round. No scleral icterus. No injection or drainage. ENT: No nasal bleeding or discharge. Mucous membranes pink and moist. NECK: Trachea midline. No JVD. CARDIOVASCULAR: Regular rate and rhythm. RESPIRATORY: No accessory muscle use. Clear to auscultation. Breath sounds equal bilaterally. GASTROINTESTINAL: Abdomen soft, non-tender, nondistended. Hepatic and splenic margins not palpable. MUSCULOSKELETAL: Extremities without clubbing, cyanosis, or edema. No obvious deformities. NEUROLOGICAL: Awake and alert. No obvious cranial nerve deficits. Motor grossly within normal limits. Five out of 5 muscle strength in the arms and legs. Normal speech. PSYCHIATRIC: Appropriate mood and affect; insight and judgment normal. Assessment and Plan Assessment and Plan ASS: RESPIRATORY FAILURE COPD ?DARLENE PLAN O2 BRONCHODILATORS LOOSE WT. NPSG POST D/C Shalom Rausch MD Jul 10, 2016 17:44
[2016-07-10] MEDS: ACETAMINOPHEN 325 MG TAB PO PRN (17:49)
[2016-07-10] MEDS: traZODone HCL 50 MG TAB PO SCH (21:06)
[2016-07-10] MEDS: TERAZOSIN HCL 5 MG CAP PO SCH (21:08)
[2016-07-11] VITALS (11 sets, daily range): BP systolic 155–182; BP diastolic 69–82; PULSE 83–104; RESP 18–21; TEMP 97.7–98.4; O2SAT 90–98
[2016-07-11] MEDS: ACETAMINOPHEN 325 MG TAB PO PRN ×4 (00:45→22:11)
[2016-07-11] MEDS: INSULIN ASPART SUPPLEMENTAL SCALE SQ SCH ×4 (00:46→15:57)
[2016-07-11] MEDS: RESP: ALBUTEROL 2.5 MG/IPRATROPIUM 0.5 MG NEB (SCH) INH ×7 (00:46→23:40)
[2016-07-11] MEDS: SODIUM CHLOR 0.9% 1000 ML INJ 1,000 ML IV SCH ×3 (00:47→21:13)
[2016-07-11] MEDS: CHLORHEXIDINE GLUCONATE 2 % 1 PACK (2 CLOTHS) TOP SCH (04:00)
[2016-07-11] MEDS: AZTREONAM 1,000 MG/NS 100 ML IV SCH ×2 (04:05)
[2016-07-11] MEDS: AZITHROMYCIN INJ 500 MG in SODIUM CHLOR 0.9% 250 ML INJ 250 ML IV SCH (04:06)
[2016-07-11] MEDS: LEVOTHYROXINE SODIUM 125 MCG TAB PO SCH (06:01)
[2016-07-11] MEDS: HEPARIN SODIUM - SQ 10,000 UNITS/ML VIAL SQ SCH ×3 (06:01→22:13)
[2016-07-11 08:08] LABS: AUTOMATED NEUTROPHIL # 13.1 TH/MM3 (1.8-7.7); BASOPHIL % 0.2 % (0.0-2.0); HEMATOCRIT 34.3 % (35.0-46.0); HEMO FLAGS DIFF FINAL; LYMPH % 2.7 % (9.0-44.0); LYMPHOCYTE # 0.4 TH/MM3 (1.0-4.8); MEAN CELL VOLUME 91.9 FL (80.0-100.0); MEAN CORPUSCULAR HGB CONC 31.5 % (32.0-36.0); MONO % 2.5 % (0.0-8.0); NEUT % 94.6 % (16.0-70.0); PLATELET COUNT 293 TH/MM3 (150-450); RED BLOOD COUNT 3.73 MIL/MM3 (4.00-5.30); RED CELL DISTRIBUTION WIDTH 16.5 % (11.6-17.2); WHITE BLOOD COUNT 13.8 TH/MM3 (4.0-11.0)
[2016-07-11 08:27] LABS: BICARBONATE 24.5 MEQ/L (21.0-32.0); POTASSIUM 4.6 MEQ/L (3.5-5.1)
[2016-07-11] MEDS: ASPIRIN EC 81 MG TABEC PO SCH (10:12)
[2016-07-11] MEDS: methylPREDNISolone SOD SUCC 40 MG/1 ML VIAL IV PUSH SCH ×2 (10:12→22:11)
[2016-07-11] MEDS: ALLOPURINOL 100 MG TAB PO SCH (10:13)
[2016-07-11] MEDS: FAMOTIDINE 20 MG TAB PO SCH ×2 (10:13→22:12)
--- NOTE | 2016-07-11 12:00 | HHI.PR ---
Subjective Remarks awake and alert minimal cough states baseline uses a walker no BM for 3 days Objective Vitals Vital Signs Date Time Temp Pulse Resp B/P Pulse Ox O2 Delivery O2 Flow Rate FiO2 07/11/16 08:45 90 Nasal Cannula 5.00 07/11/16 08:07 98.4 87 20 175/80 90 07/11/16 06:55 88 07/11/16 04:00 97.7 85 18 155/70 90 07/11/16 02:49 18 07/11/16 00:00 97.9 83 20 155/70 93 07/10/16 20:00 98.5 85 25 120/61 92 07/10/16 20:00 88 07/10/16 19:30 95 Nasal Cannula 6.00 07/10/16 18:00 95 07/10/16 16:00 91 07/10/16 16:00 98.4 91 22 152/69 94 07/10/16 14:00 90 07/10/16 12:00 87 07/10/16 12:00 98.8 87 24 170/74 91 I/O 07/10/16 07/10/16 07/10/16 07/11/16 07/11/16 07/11/16 07:00 15:00 23:00 07:00 15:00 23:00 Intake Total 605 ml 710 ml 650 ml 240 ml Output Total 200 ml 250 ml 200 ml 425 ml Balance 405 ml 460 ml 450 ml -185 ml Intake Oral 0 ml 240 ml IV Total 605 ml 710 ml 650 ml Output Urine Total 200 ml 250 ml 200 ml 425 ml # Voids 0 # Bowel Movements 0 0 Result Diagram: 07/11/16 0708 07/11/16 0708 Imaging Last Impressions Chest X-Ray 07/10/16 0000 Signed Impressions: Service Date/Time: Sunday, July 10, 2016 04:48 - CONCLUSION: Mild pulmonary venous congestion. Otherwise stable examination compared to the prior study. Shahid Cardenas MD Renal Ultrasound 07/09/16 0000 Signed Impressions: Service Date/Time: Saturday, July 09, 2016 13:02 - CONCLUSION: Negative renal sonogram. Cheo Bentley MD Head CT 07/08/16 0000 Signed Impressions: Service Date/Time: Saturday, July 09, 2016 02:21 - CONCLUSION: Normal examination. Cheo Clark Jr., MD Objective Remarks appears comfortab eawake and alert no nuchal rigidity, no JVD decrease breath sounds, no rales or wheezes abdomen- soft, flabby, nontender dailey in place Assessment to: Remove Date of Removal: Jul 11, 2016 A/P Assessment and Plan 75 years old Pulm: Continue with oxygen keep sat >92% Bronchodilators, decrease solumederol 40mg Q12- change to po in am NIPPV PRN for resp distress. Pulm is following -Dr. 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 Cr: trending down Continue with IVF NS@100ml/hr Renal US: within normal GI: On PO diet ID: Continue with abx( Aztreonam, Azithromycin) monitor for signs of infections Heme: Monitor CBC DM, tyupe 2 Hypothyroidism On SSI ( medium scale) , taper IV steroids which should help with glycemic control- change to po in am was also on Janumet at home- DC with RED On Synthroid 125mcg daily-TSH: 0.53 Constipation- colace 100 mg po bid GI prophylaxis- on Pepcid DVT prophylaxis- On Heparin SQ PT consult for deconditioning Raheem White MD Jul 11, 2016 12:00 DVT prophylaxis- On Heparin SQ PT consult for deconditioning Raheem White MD Jul 11, 2016 12:00
[2016-07-11] MEDS: DOCUSATE SODIUM 100 MG CAP PO SCH ×2 (12:16→22:13)
[2016-07-11] MEDS: AZTREONAM INJ 500 MG in SODIUM CHLORIDE 0.9% INJ 100 ML IV SCH ×2 (12:16→22:09)
[2016-07-11] MEDS ORDERED: GLUCAGON 1 MG/ML VIAL OTHER PRN (17:00)
[2016-07-11] MEDS ORDERED: DEXTROSE 50% IN WATER 50 ML VIAL(D50) IV PUSH PRN (17:00)
--- NOTE | 2016-07-11 18:52 | HHI.PR ---
Subjective Remarks no sob at rest sat 95% NC Objective Vital Signs Date Time Temp Pulse Resp B/P Pulse Ox O2 Delivery O2 Flow Rate FiO2 07/11/16 16:24 98.3 104 20 168/71 91 07/11/16 15:24 98 Nasal Cannula 5.00 07/11/16 12:16 98.0 90 21 182/82 93 07/11/16 08:45 90 Nasal Cannula 5.00 07/11/16 08:07 98.4 87 20 175/80 90 07/11/16 08:00 86 07/11/16 06:55 88 07/11/16 04:00 97.7 85 18 155/70 90 07/11/16 02:49 18 07/11/16 00:00 97.9 83 20 155/70 93 07/10/16 20:00 98.5 85 25 120/61 92 07/10/16 20:00 88 07/10/16 19:30 95 Nasal Cannula 6.00 I/O 07/10/16 07/10/16 07/10/16 07/11/16 07/11/16 07/11/16 06:59 14:59 22:59 06:59 14:59 22:59 Intake Total 605 ml 710 ml 650 ml 240 ml 2100 ml Output Total 200 ml 250 ml 200 ml 425 ml 800 ml Balance 405 ml 460 ml 450 ml -185 ml 1300 ml Intake Oral 0 ml 240 ml 720 ml IV Total 605 ml 710 ml 650 ml 1380 ml Output Urine Total 200 ml 250 ml 200 ml 425 ml 800 ml # Voids 0 # Bowel Movements 0 0 0 Result Diagram: 07/11/16 0708 07/11/16 0708 Objective Remarks GENERAL: SKIN: Warm and dry. HEAD: Atraumatic. Normocephalic. EYES: Pupils equal and round. No scleral icterus. No injection or drainage. ENT: No nasal bleeding or discharge. Mucous membranes pink and moist. NECK: Trachea midline. No JVD. CARDIOVASCULAR: Regular rate and rhythm. RESPIRATORY: No accessory muscle use. Clear to auscultation. Breath sounds equal bilaterally. GASTROINTESTINAL: Abdomen soft, non-tender, nondistended. Hepatic and splenic margins not palpable. MUSCULOSKELETAL: Extremities without clubbing, cyanosis, or edema. No obvious deformities. NEUROLOGICAL: Awake and alert. No obvious cranial nerve deficits. Motor grossly within normal limits. Five out of 5 muscle strength in the arms and legs. Normal speech. PSYCHIATRIC: Appropriate mood and affect; insight and judgment normal. Assessment and Plan Assessment and Plan ASS: RESPIRATORY FAILURE COPD ?DARLENE PLAN O2 BRONCHODILATORS LOOSE WT. NPSG POST D/C Shalom Rausch MD Jul 11, 2016 18:52
--- NOTE | 2016-07-11 19:45 | HHI.NPPN ---
Subjective General Problems: Anemia Renal Failure: Chronic, Acute, Stage III History of Present Illness 75-year-old female with past medical history of hypertension, diabetes mellitus, hyperlipidemia, chronic obstructive pulmonary disease, possible chronic kidney disease who was admitted with worsening shortness of breath. I was called to see the patient because of elevated BUN and creatinine. Additional Remarks Patient is alert, breathing is better, started eating. Review of Systems General Constitutional: Fatigue Respiratory Lungs: SOB, Cough, Wheeze Cardiovascular Cardiac: Edema, GRADY Objective Data Data 07/10/16 07/11/16 19:00 07:00 Intake Total 710 ml 890 ml Output Total 250 ml 625 ml Balance 460 ml 265 ml Intake Oral 240 ml IV Total 710 ml 650 ml Output Urine Total 250 ml 625 ml # Voids 0 # Bowel Movements 0 Vital Signs Date Time Temp Pulse Resp B/P Pulse Ox O2 Delivery O2 Flow Rate FiO2 07/11/16 16:24 98.3 104 20 168/71 91 07/11/16 15:24 98 Nasal Cannula 5.00 07/11/16 12:16 98.0 90 21 182/82 93 07/11/16 08:45 90 Nasal Cannula 5.00 07/11/16 08:07 98.4 87 20 175/80 90 07/11/16 08:00 86 07/11/16 06:55 88 07/11/16 04:00 97.7 85 18 155/70 90 07/11/16 02:49 18 07/11/16 00:00 97.9 83 20 155/70 93 07/10/16 20:00 98.5 85 25 120/61 92 07/10/16 20:00 88 -: 07/11/16 0708 07/11/16 0708 Physical Exam General Appearance: No Acute Distress, Comfortable Eyes Eye Exam: Pupils Equal Throat Throat Exam: Oral Mucosa [place] & Moist Neck Neck Exam: Neck Supple Pulmonary Resp Exam: No Distress, Crackles, Rhonchi, Decreased Bases, Diminished Breath Sounds Cardiology CV Exam: Regular, Normal Sinus Rhythm Gastrointestinal/Abdomen GI Exam: Soft, Non-Tender, Bowel Sounds Present, Distended Extremeties Extremities Exam: Trace Edema Neurologic Neuro Exam: Alert, Awake, Oriented Psychiatric Psych Exam: Appropriate Responses Assessment/Plan Assessment Summary: RED/Acute Renal Failure, CKD Stage III Problem List: (1) Bronchitis (2) Decompensated COPD with exacerbation (chronic obstructive pulmonary disease) (3) CO2 narcosis (4) Acute respiratory failure with hypoxia and hypercarbia (5) Chronic kidney disease (CKD) (6) Acute kidney injury Plan Patient has been non oliguric. Has chronic kidney disease, with baseline Creatinine close to 1.7-1.8. 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 BP is stable. Continue IVF and antibiotics. Renal U/S noted. Has no Eosinophiluria. Develop RED, possibly ATN/Pre renal. Now the Creatinine continue to improve. Continue IVF, follow the urine out put and BMP. Problem Qualifiers (1) Chronic kidney disease (CKD): Qualified Code: N18.3 - Chronic kidney disease (CKD), stage 3 (moderate) Tess Garcias MD Jul 11, 2016 19:45
[2016-07-11] MEDS: MEDIUM DOSE INSULIN NOVOLOG SUPPLEMENTAL SCALE SQ SCH (22:10)
[2016-07-11] MEDS: TERAZOSIN HCL 5 MG CAP PO SCH (22:12)
[2016-07-11] MEDS: traZODone HCL 50 MG TAB PO SCH (22:13)
[2016-07-12] VITALS (9 sets, daily range): BP systolic 140–171; BP diastolic 60–79; PULSE 84–112; RESP 18–22; TEMP 97.5–98.1; O2SAT 90–93
[2016-07-12] MEDS: AZTREONAM INJ 500 MG in SODIUM CHLORIDE 0.9% INJ 100 ML IV SCH ×2 (03:14→11:39)
[2016-07-12] MEDS: AZITHROMYCIN INJ 500 MG in SODIUM CHLOR 0.9% 250 ML INJ 250 ML IV SCH (03:17)
[2016-07-12] MEDS: RESP: ALBUTEROL 2.5 MG/IPRATROPIUM 0.5 MG NEB (SCH) INH ×3 (03:58→13:19)
[2016-07-12] MEDS: CHLORHEXIDINE GLUCONATE 2 % 1 PACK (2 CLOTHS) TOP SCH (04:00)
[2016-07-12] MEDS: ACETAMINOPHEN 325 MG TAB PO PRN (04:23)
[2016-07-12] MEDS: LEVOTHYROXINE SODIUM 125 MCG TAB PO SCH (06:00)
[2016-07-12] MEDS: HEPARIN SODIUM - SQ 10,000 UNITS/ML VIAL SQ SCH ×3 (06:00→21:08)
[2016-07-12] MEDS: MEDIUM DOSE INSULIN NOVOLOG SUPPLEMENTAL SCALE SQ SCH ×4 (06:47→21:08)
[2016-07-12] MEDS: FAMOTIDINE 20 MG TAB PO SCH ×2 (09:00→21:00)
[2016-07-12] MEDS: DOCUSATE SODIUM 100 MG CAP PO SCH ×2 (09:00→21:00)
[2016-07-12] MEDS: ALLOPURINOL 100 MG TAB PO SCH (09:00)
[2016-07-12] MEDS: ASPIRIN EC 81 MG TABEC PO SCH (09:00)
--- NOTE | 2016-07-12 09:48 | HHI.PR ---
Subjective Remarks comfortable at rest, short of breath with minimal exertion- even with just transfers from bed to chair - no wheezing but you can tell SOB with exertion- per patient baseline Objective Vitals Vital Signs Date Time Temp Pulse Resp B/P Pulse Ox O2 Delivery O2 Flow Rate FiO2 07/12/16 08:02 92 Nasal Cannula 3.00 07/12/16 04:00 97.6 97 20 151/68 93 07/12/16 03:58 90 Nasal Cannula 3.00 07/12/16 00:00 97.8 84 18 158/67 91 07/11/16 20:13 98 07/11/16 20:00 97.9 97 18 155/69 90 07/11/16 16:24 98.3 104 20 168/71 91 07/11/16 15:24 98 Nasal Cannula 5.00 07/11/16 12:16 98.0 90 21 182/82 93 I/O 07/11/16 07/11/16 07/11/16 07/12/16 07/12/16 07/12/16 07:00 15:00 23:00 07:00 15:00 23:00 Intake Total 240 ml 2100 ml 240 ml 0 ml Output Total 425 ml 800 ml 400 ml 400 ml Balance -185 ml 1300 ml -160 ml -400 ml Intake Oral 240 ml 720 ml 240 ml 0 ml IV Total 1380 ml Output Urine Total 425 ml 800 ml 400 ml 400 ml # Bowel Movements 0 0 0 0 Result Diagram: 07/11/16 0708 07/11/16 0708 Imaging Last Impressions Chest X-Ray 07/10/16 0000 Signed Impressions: Service Date/Time: Sunday, July 10, 2016 04:48 - CONCLUSION: Mild pulmonary venous congestion. Otherwise stable examination compared to the prior study. Shahid Cardenas MD Renal Ultrasound 07/09/16 0000 Signed Impressions: Service Date/Time: Saturday, July 09, 2016 13:02 - CONCLUSION: Negative renal sonogram. Cheo Bentley MD Head CT 07/08/16 0000 Signed Impressions: Service Date/Time: Saturday, July 09, 2016 02:21 - CONCLUSION: Normal examination. Cheo Clark Jr., MD Objective Remarks awake and alert no nuchal rigidity, no JVD decrease breath sounds, no rales or wheezes abdomen- soft, flabby, nontender Date of Removal: Jul 11, 2016 A/P Assessment and Plan 75 years old Pulm: Respiratory failure- Continue with oxygen keep sat >92%- patient has home 02 Bronchodilators, change to po prednisone NIPPV PRN for resp distress. Pulm is following -Dr. 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 S/P 3 days of 500 mg Zithromax Heme: Monitor CBC DM, type 2 Hypothyroidism On SSI ( medium scale) , was also on Janumet at home- DC with RED On Synthroid 125mcg daily-TSH: 0.53 start 70/30 5 units bid Constipation- colace 100 mg po bid GI prophylaxis- on Pepcid DVT prophylaxis- On Heparin SQ PT consult for deconditioning will need SNF or if home arrange for HHC 5:30 pm patient crying and agitated- patient talking and seeing people not around referring to staff as family members accusing them- paranoid - accusing us of stealing her I spoke with her daughter- states - another daughter - Nicci is calling her and feeding her information to make patient more upset BS 211 will hold steroids Acute psychcosis- but renal functions are improving ? steroid psychosis history of depression renal functions improving get a psychiatry consult Seroquel po x 1 now there is definitely some family dynamics going on causing this acute agitation. between 2 daughters and the Raheem Roche MD Jul 12, 2016 09:47
[2016-07-12] MEDS: predniSONE 20 MG TAB PO SCH (10:00)
[2016-07-12] MEDS ORDERED: MISC-163 (10:54)
[2016-07-12 13:48] LABS: BICARBONATE 26.9 MEQ/L (21.0-32.0); POTASSIUM 4.5 MEQ/L (3.5-5.1)
--- NOTE | 2016-07-12 14:06 | HHI.FF ---
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 My clinical findings support the need for the requested home health care services because: Deconditioned w/ increased weakness Need for psychosocial assistance I certify that my clinical findings support that this patient is homebound because: Hx COPD- exertion dyspnea/weakness Need for psychosocial assistance Raheem White MD Jul 12, 2016 14:06
--- NOTE | 2016-07-12 16:15 | HHI.PR ---
Subjective Remarks no sob at rest sat 95% NC Objective Vital Signs Date Time Temp Pulse Resp B/P Pulse Ox O2 Delivery O2 Flow Rate FiO2 07/12/16 16:00 98.1 110 20 140/63 92 07/12/16 08:08 97.6 106 22 158/60 91 07/12/16 08:02 92 Nasal Cannula 3.00 07/12/16 08:00 85 07/12/16 04:00 97.6 97 20 151/68 93 07/12/16 03:58 90 Nasal Cannula 3.00 07/12/16 00:00 97.8 84 18 158/67 91 07/11/16 20:13 98 07/11/16 20:00 97.9 97 18 155/69 90 07/11/16 16:24 98.3 104 20 168/71 91 I/O 07/11/16 07/11/16 07/11/16 07/12/16 07/12/16 07/12/16 07:00 15:00 23:00 07:00 15:00 23:00 Intake Total 240 ml 2100 ml 240 ml 0 ml Output Total 425 ml 800 ml 400 ml 400 ml Balance -185 ml 1300 ml -160 ml -400 ml Intake Oral 240 ml 720 ml 240 ml 0 ml IV Total 1380 ml Output Urine Total 425 ml 800 ml 400 ml 400 ml # Bowel Movements 0 0 0 0 Result Diagram: 07/11/16 0708 07/12/16 1309 Objective Remarks GENERAL: SKIN: Warm and dry. HEAD: Atraumatic. Normocephalic. EYES: Pupils equal and round. No scleral icterus. No injection or drainage. ENT: No nasal bleeding or discharge. Mucous membranes pink and moist. NECK: Trachea midline. No JVD. CARDIOVASCULAR: Regular rate and rhythm. RESPIRATORY: No accessory muscle use. Clear to auscultation. Breath sounds equal bilaterally. GASTROINTESTINAL: Abdomen soft, non-tender, nondistended. Hepatic and splenic margins not palpable. MUSCULOSKELETAL: Extremities without clubbing, cyanosis, or edema. No obvious deformities. NEUROLOGICAL: Awake and alert. No obvious cranial nerve deficits. Motor grossly within normal limits. Five out of 5 muscle strength in the arms and legs. Normal speech. PSYCHIATRIC: Appropriate mood and affect; insight and judgment normal. Assessment and Plan Assessment and Plan ASS: RESPIRATORY FAILURE COPD ?DARLENE PLAN O2 BRONCHODILATORS LOOSE WT. NPSG POST D/C ok for DC PULMONARY [facility]OME OFFICE 1 WEEK Shalom Rausch MD Jul 12, 2016 16:14
[2016-07-12] MEDS: INSULIN HUMAN NPH/R 70/30 1,000 UNITS/10 ML VIAL SQ SCH (17:00)
[2016-07-12] MEDS ORDERED: QUEtiapine FUMARATE 25 MG TAB PO ONE (18:00)
[2016-07-12] MEDS: SODIUM CHLOR 0.9% 1000 ML INJ 1,000 ML IV SCH ×2 (18:15→19:17)
--- NOTE | 2016-07-12 18:50 | HHI.NPPN ---
Subjective General Problems: Anemia Renal Failure: Chronic, Acute, Stage III History of Present Illness 75-year-old female with past medical history of hypertension, diabetes mellitus, hyperlipidemia, chronic obstructive pulmonary disease, possible chronic kidney disease who was admitted with worsening shortness of breath. I was called to see the patient because of elevated BUN and creatinine. Additional Remarks Patient is alert, siting on chair and has been confused, want to go home, not in distress. Review of Systems General Constitutional: Fatigue Respiratory Lungs: SOB, Cough, Wheeze Cardiovascular Cardiac: Edema, GRADY Objective Data Data 07/11/16 07/12/16 19:00 07:00 Intake Total 2100 ml 240 ml Output Total 800 ml 800 ml Balance 1300 ml -560 ml Intake Oral 720 ml 240 ml IV Total 1380 ml Output Urine Total 800 ml 800 ml # Bowel Movements 0 0 Vital Signs Date Time Temp Pulse Resp B/P Pulse Ox O2 Delivery O2 Flow Rate FiO2 07/12/16 16:00 98.1 110 20 140/63 92 07/12/16 08:08 97.6 106 22 158/60 91 07/12/16 08:02 92 Nasal Cannula 3.00 07/12/16 08:00 85 07/12/16 04:00 97.6 97 20 151/68 93 07/12/16 03:58 90 Nasal Cannula 3.00 07/12/16 00:00 97.8 84 18 158/67 91 07/11/16 20:13 98 07/11/16 20:00 97.9 97 18 155/69 90 -: 07/11/16 0708 07/12/16 1309 Physical Exam General Appearance: No Acute Distress, Comfortable Eyes Eye Exam: Pupils Equal Throat Throat Exam: Oral Mucosa [place] & Moist Neck Neck Exam: Neck Supple Pulmonary Resp Exam: No Distress, Crackles, Rhonchi, Decreased Bases, Diminished Breath Sounds Cardiology CV Exam: Regular, Normal Sinus Rhythm Gastrointestinal/Abdomen GI Exam: Soft, Non-Tender, Bowel Sounds Present, Distended Extremeties Extremities Exam: Trace Edema Neurologic Neuro Exam: Alert, Awake, Oriented Psychiatric Psych Exam: Appropriate Responses Assessment/Plan Assessment Summary: RED/Acute Renal Failure, CKD Stage III Problem List: (1) Bronchitis (2) Decompensated COPD with exacerbation (chronic obstructive pulmonary disease) (3) CO2 narcosis (4) Acute respiratory failure with hypoxia and hypercarbia (5) Chronic kidney disease (CKD) (6) Acute kidney injury Plan Patient has been non oliguric. Has chronic kidney disease, with baseline Creatinine close to 1.7-1.8. 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 BP is stable. Continue IVF and antibiotics. Renal U/S noted. Has no Eosinophiluria. Develop RED, possibly ATN/Pre renal. Creatinine continue to improve. Continue IVF, follow the urine out put and BMP. Psych. is consulted for confusion. Problem Qualifiers (1) Chronic kidney disease (CKD): Qualified Code: N18.3 - Chronic kidney disease (CKD), stage 3 (moderate) Tess Garcias MD Jul 12, 2016 18:50
[2016-07-12] MEDS: TERAZOSIN HCL 5 MG CAP PO SCH (21:00)
[2016-07-12] MEDS: traZODone HCL 50 MG TAB PO SCH (21:00)
[2016-07-13] VITALS (10 sets, daily range): BP systolic 131–199; BP diastolic 79–90; PULSE 73–104; RESP 18–20; TEMP 97.4–97.9; O2SAT 90–96
[2016-07-13] MEDS: RESP: ALBUTEROL 2.5 MG/IPRATROPIUM 0.5 MG NEB (SCH) INH (00:46)
[2016-07-13] MEDS: CHLORHEXIDINE GLUCONATE 2 % 1 PACK (2 CLOTHS) TOP SCH (03:49)
[2016-07-13] MEDS: LEVOTHYROXINE SODIUM 125 MCG TAB PO SCH (05:43)
[2016-07-13] MEDS: HEPARIN SODIUM - SQ 10,000 UNITS/ML VIAL SQ SCH ×3 (05:43→21:02)
[2016-07-13] MEDS: MEDIUM DOSE INSULIN NOVOLOG SUPPLEMENTAL SCALE SQ SCH ×4 (06:01→21:00)
[2016-07-13] MEDS: ASPIRIN EC 81 MG TABEC PO SCH (08:42)
[2016-07-13] MEDS: INSULIN HUMAN NPH/R 70/30 1,000 UNITS/10 ML VIAL SQ SCH ×2 (08:43→16:10)
[2016-07-13] MEDS: predniSONE 20 MG TAB PO SCH (08:44)
[2016-07-13] MEDS: DOCUSATE SODIUM 100 MG CAP PO SCH ×2 (08:44→21:01)
[2016-07-13] MEDS: ALLOPURINOL 100 MG TAB PO SCH (08:44)
[2016-07-13] MEDS: FAMOTIDINE 20 MG TAB PO SCH ×2 (08:44→21:02)
--- NOTE | 2016-07-13 09:46 | HHI.NPPN ---
Subjective General Problems: Anemia Renal Failure: Chronic, Acute, Stage III History of Present Illness 75-year-old female with past medical history of hypertension, diabetes mellitus, hyperlipidemia, chronic obstructive pulmonary disease, possible chronic kidney disease who was admitted with worsening shortness of breath. I was called to see the patient because of elevated BUN and creatinine. Additional Remarks Patient is alert, lying on bed, oriented times one, only in place, not in distress. Review of Systems General Constitutional: Fatigue Respiratory Lungs: SOB, Cough, Wheeze Cardiovascular Cardiac: Edema, GRADY Objective Data Data 07/12/16 07/13/16 19:00 07:00 Intake Total 200 ml Output Total 550 ml Balance -350 ml Intake Oral 200 ml Output Urine Total 550 ml # Bowel Movements 0 Vital Signs Date Time Temp Pulse Resp B/P Pulse Ox O2 Delivery O2 Flow Rate FiO2 07/13/16 08:00 97.8 101 20 195/86 93 07/13/16 04:00 97.5 101 18 195/84 90 07/13/16 00:48 94 Nasal Cannula 3.00 07/13/16 00:00 97.9 104 18 195/90 90 07/12/16 20:00 97.5 112 18 171/79 91 07/12/16 20:00 109 07/12/16 16:00 98.1 110 20 140/63 92 07/12/16 12:04 97.8 100 22 156/62 91 -: 07/11/16 0708 07/13/16 0557 Physical Exam General Appearance: No Acute Distress, Comfortable Eyes Eye Exam: Pupils Equal Throat Throat Exam: Oral Mucosa [place] & Moist Neck Neck Exam: Neck Supple Pulmonary Resp Exam: No Distress, Crackles, Rhonchi, Decreased Bases, Diminished Breath Sounds Cardiology CV Exam: Regular, Normal Sinus Rhythm Gastrointestinal/Abdomen GI Exam: Soft, Non-Tender, Bowel Sounds Present, Distended Extremeties Extremities Exam: Trace Edema Neurologic Neuro Exam: Alert, Awake, Oriented Psychiatric Psych Exam: Appropriate Responses Assessment/Plan Assessment Summary: RED/Acute Renal Failure, CKD Stage III Problem List: (1) Bronchitis (2) Decompensated COPD with exacerbation (chronic obstructive pulmonary disease) (3) CO2 narcosis (4) Acute respiratory failure with hypoxia and hypercarbia (5) Chronic kidney disease (CKD) (6) Acute kidney injury Plan Patient has been non oliguric. Has chronic kidney disease, with baseline Creatinine close to 1.7-1.8. 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 BP is stable. Continue IVF and antibiotics. Renal U/S noted. Has no Eosinophiluria. Develop RED, possibly ATN/Pre renal. Creatinine continue to improve. Continue IVF, follow the urine out put and BMP. Psych. is consulted for confusion. BP is elevated, add Labetalol. Problem Qualifiers (1) Chronic kidney disease (CKD): Qualified Code: N18.3 - Chronic kidney disease (CKD), stage 3 (moderate) Tess Garcias MD Jul 13, 2016 09:46
[2016-07-13] MEDS: LABETALOL HCL 100 MG TAB PO SCH ×2 (12:07→19:06)
--- NOTE | 2016-07-13 13:55 | HHI.PR ---
Subjective Remarks patient calmer - still insists on going home told her we will increase activity and observed before making DC plans off restraints all night Objective Vitals Vital Signs Date Time Temp Pulse Resp B/P Pulse Ox O2 Delivery O2 Flow Rate FiO2 07/13/16 12:00 97.7 93 20 169/79 95 07/13/16 10:02 94 Nasal Cannula 3.00 07/13/16 08:50 100 07/13/16 08:00 97.8 101 20 195/86 93 07/13/16 04:00 97.5 101 18 195/84 90 07/13/16 00:48 94 Nasal Cannula 3.00 07/13/16 00:00 97.9 104 18 195/90 90 07/12/16 20:00 97.5 112 18 171/79 91 07/12/16 20:00 109 07/12/16 16:00 98.1 110 20 140/63 92 I/O 07/12/16 07/12/16 07/12/16 07/13/16 07/13/16 07/13/16 07:00 15:00 23:00 07:00 15:00 23:00 Intake Total 0 ml 100 ml 100 ml Output Total 400 ml 250 ml 300 ml Balance -400 ml -150 ml -200 ml Intake Oral 0 ml 100 ml 100 ml Output Urine Total 400 ml 250 ml 300 ml # Bowel Movements 0 0 0 Result Diagram: 07/11/16 0708 07/13/16 0557 Imaging Last Impressions Chest X-Ray 07/10/16 0000 Signed Impressions: Service Date/Time: Sunday, July 10, 2016 04:48 - CONCLUSION: Mild pulmonary venous congestion. Otherwise stable examination compared to the prior study. Shahid Cardenas MD Renal Ultrasound 07/09/16 0000 Signed Impressions: Service Date/Time: Saturday, July 09, 2016 13:02 - CONCLUSION: Negative renal sonogram. Cheo Bentley MD Head CT 07/08/16 0000 Signed Impressions: Service Date/Time: Saturday, July 09, 2016 02:21 - CONCLUSION: Normal examination. Cheo Clark Jr., MD Objective Remarks awake and alert, oriented x 3, slightly anxious- wanting to go home no nuchal rigidity, no JVD decrease breath sounds, no rales or wheezes, no rhonchi abdomen- soft, flabby, nontender left hand- swelling and bruised- limited movement by swelling LE- no edema moves all extremities spontaneously Date of Removal: Jul 11, 2016 A/P Assessment and Plan 75 years old Pulm: Respiratory failure- Continue with oxygen keep sat >92%- patient has home 02 Bronchodilators, steroids- DC due to acute psychoses NIPPV PRN for resp distress. Pulm is following -Dr. 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 Warm compress to hand. get OT consult in am ID: off antibitoics. Aztreonam, Azithromycin) monitor for signs of infections- will DC Azactam. S/P 3 days of 500 mg Zithromax Heme: Monitor CBC DM, type 2 Hypothyroidism On SSI ( medium scale) , was also on Janumet at home- DC with RED On Synthroid 125mcg daily-TSH: 0.53 start 70/30 5 units bid Constipation- colace 100 mg po bid Acute psychosis- behavior and emotional state improved improved with Seroquel x 1 dose yesterday. will start daily awaiting psychiatry consult GI prophylaxis- on Pepcid DVT prophylaxis- On Heparin SQ PT consult for deconditioning will need SNF or if home arrange for HHC there is definitely some family dynamics going on causing this acute agitation. between 2 daughters and the o Raheem White MD Jul 13, 2016 13:55 Raheem White MD Jul 13, 2016 13:55
[2016-07-13] MEDS ORDERED: QUEtiapine FUMARATE 25 MG TAB PO SCH (14:15)
--- NOTE | 2016-07-13 14:36 | PD.CONS ---
Provisional Diagnosis Admission Date Jul 09, 2016 at 03:24 [place] I. Delirium due to underlying medical condition [place] II. Deferred [place] III. HTN, COPD [place] IV. Chronic medical illnesses [place] V. 55 History of Present Illness Service Psychiatry Consult Requested By Primary Care Physician Unknown HPI The patient is a 75-year-old woman, domicile with in [place], retired, without any significant psychiatric history other than an OD as an adolescence, but no psychiatric hospitalizations, medical history of COPD, diabetes mellitus, hypertension, who is hospitalized due to Respiratory failure , Hypertension, ERD, consulted to psychiatry due to episode of agitation and psychosis. As per nurse in charge patient yesterday was combative, agitated, and having visual hallucinations. Patient had to be restrained in 4 points and given medications. Today on psychiatric evaluation patient is found in 2-point restraints, however, she is calm, cooperative and pleasant. Patient does not know the reason she is hospitalized, she says that she has a very confused on and off, she does not know the reason she was brought to the hospital. She expresses frustration because she woke up and she cannot move her hands and they are tight. Patient is fully oriented in 3, with no attention deficit, no fluctuation of consciousness, able to sustain a logical, coherent and relevant conversation. She reports okay mood, denies depressive symptoms, denies anhedonia, denies hopelessness, denies helplessness, denies worthlessness, denies anxiety, denies suicidal and was ideation, denies visual and auditory hallucinations this moment. At deeper cognitive test could not be performed due to limitations would restraints. However patient seems to have a conservator language, calculation abilities, recent and immediate recall, repetition. Patient denies the use of alcohol and illicit drugs.. Review of Systems Constitutional: DENIES: Diaphoretic episodes, Fatigue, Fever, Weight gain, Weight loss, Chills, Dizziness, Change in appetite, Night Sweats Endocrine: DENIES: Abnorml menstrual pattern, Heat/cold intolerance, Polydipsia , Polyuria, Polyphagia Eyes: DENIES: Blurred vision, Diplopia, Eye inflammation, Eye pain, Vision loss , Photosensitivity, Double Vision Ears, nose, mouth, throat: DENIES: Tinnitus, Hearing loss, Vertigo, Nasal discharge, Oral lesions, Throat pain, Hoarseness, Ear Pain, Running Nose, Epistaxis, Sinus Pain, Toothache, Odynophagia Respiratory: DENIES: Apneas, Cough, Snoring, Wheezing, Hemoptysis, Sputum production, Shortness of breath Cardiovascular: DENIES: Chest pain, Palpitations, Syncope, Dyspnea on Exertion , PND, Lower Extremity Edema, Orthopnea, Claudication Musculoskeletal: DENIES: Joint pain, Muscle aches, Stiffness, Joint Swelling, Back pain, Neck pain Integumentary: DENIES: Abnormal pigmentation, Pruritus, Rash, Nail changes, Breast masses, Breast skin changes, Nipple discharge Hematologic/lymphatic: DENIES: Bruising, Lymphadenopathy Immunologic/allergic: DENIES: Eczema, Urticaria Neurologic: DENIES: Abnormal gait, Headache, Localized weakness, Paresthesias, Seizures, Speech Problems, Tremor, Poor Balance Psychiatric: DENIES: Anxiety, Confusion, Mood changes, Depression, Hallucinations, Agitation, Suicidal Ideation, Homicidal Ideation, Delusions Past Family Social History Coded Allergies: Amoxicillin (Verified Allergy, Severe, HIVES, 07/08/16) Cortisone (Verified Allergy, Severe, 07/08/16) E-Mycin (Verified Allergy, Severe, HIVES, 07/08/16) Penicillin (Verified Allergy, Severe, HIVES, 07/08/16) Active Scripts 3-in-1 Bedside Toilet 1 Mis Mis #1 Ea .route As Directed Prov:Raheem White MD 07/12/16 Cephalexin (Keflex)500 Mg [id number] Mg PO Q6H #28 CAP Ref 0 Prov:Alo Lopez MD 01/21/16 Reported Medications [Aller-Renita] No Conflict Check10 Mg 05/04/16 Terazosin 10 Mg Cap10 Mg PO HS #30 CAP Ref 0 05/03/16 Furosemide 20 Mg Tab20 Mg PO DAILY #30 TAB Ref 0 05/03/16 Allopurinol 300 Mg [id number] Mg PO DAILY #30 TAB Ref 0 05/03/16 Lisinopril 5 Mg Tab5 Mg PO DAILY #30 TAB Ref 0 05/03/16 Glipizide 5 Mg Tab5 Mg PO BIDAC #60 TAB Ref 0 Take 30 minutes before a meal 05/03/16 Sitagliptin-Metformin (Janumet)50-500 Mg Tab1 Tab PO BID #60 TAB Ref 0 05/03/16 Amlodipine 10 Mg Tab10 Mg PO DAILY #30 TAB Ref 0 05/03/16 Atorvastatin Unknown Strength TabUnknown Dose PO HS #30 TAB Ref 0 05/03/16 Cholecalciferol (D3 Ultra Strength)5,000 Unit Cap5,000 Units PO DAILY #30 CAP Ref 0 05/03/16 Levothyroxine 125 Mcg [id number] Mcg PO DAILY #30 TAB Ref 0 05/03/16 Aspirin 81 Mg [id number] Mg PO DAILY 01/21/16 Cholesterol Unknown Strength MisUnknown Dose PO HS 01/21/16 [blood pressure med] Unknown Strength No Conflict CheckUnknown Dose PO DAILY 01/21/16 [diabetic med] Unknown Strength No Conflict CheckUnknown Dose PO BID 01/21/16 Albuterol Neb Unknown Strength NebUnknown Dose NEB Q4HR NEB PRN (WHEEZING) #25 NEBULE Ref 0 01/21/16 Hydroxyzine Pamoate (Vistaril)50 Mg Cap50 Mg PO Q6HR PRN (ITCHING) Ref 0 01/21/16 Trazodone 150 Mg [id number] Mg PO HS #30 TAB Ref 0 01/21/16 Current Medications Medications (Trade) Dose Ordered Sig/Eduadro Route Start Time Stop Time Status Last Admin (NS Flush) 2 ml UNSCH PRN IVF 07/08/16 23:45 (Zyloprim) 200 mg DAILY PO 07/09/16 09:00 07/13/16 08:44 (Norvasc) 10 mg DAILY PO 07/09/16 09:00 07/13/16 08:44 (Ecotrin Ec) 81 mg DAILY PO 07/09/16 09:00 07/13/16 08:42 (Synthroid) 125 mcg DAILY@0600 PO 07/09/16 06:00 07/13/16 05:43 (Hytrin) 10 mg HS PO 07/09/16 21:00 07/11/16 22:12 (Desyrel) 150 mg HS PO 07/09/16 21:00 07/11/16 22:13 (Tylenol) 650 mg Q6H PRN PO 07/09/16 03:15 07/12/16 04:23 (Pepcid) 10 mg Q12HR PO 07/09/16 09:00 07/13/16 08:44 (Zofran Inj) 4 mg Q6H PRN IV 07/09/16 03:15 (Heparin Inj) 5,000 units Q8HR SQ 07/09/16 06:00 07/13/16 05:43 Miscellaneous Information 1 Q361D XX 07/09/16 03:15 (Chlorhexidine 2% Cloth) 3 pack Taper DAILY@04 TOP 07/09/16 04:00 07/05/17 03:59 07/11/16 04:00 Chlorhexidine Gluconate 3 pack 3 pack UNSCH PRN TOP 07/09/16 03:15 (NS 1000 ml Inj) 1,000 ml @ 50 mls/hr Q20H IV 07/09/16 08:15 07/12/16 18:15 (Colace) 100 mg BID PO 07/11/16 12:00 07/12/16 09:00 (D50w (Vial) Inj) 25 ml UNSCH PRN IV PUSH 07/11/16 17:00 (Glucagon Inj) 1 mg UNSCH PRN OTHER 07/11/16 17:00 (NovoLIN 70/30 INJ) 5 units BID@08,17 SQ 07/12/16 17:00 07/13/16 08:43 (Trandate) 100 mg Q12HR PO 07/13/16 11:30 07/13/16 12:07 (Deltasone) 30 mg DAILY PO 07/14/16 09:00 (SEROquel) 25 mg BID PO 07/13/16 21:00 UNV Family History She denies psychiatric history in family Social History Patient was born and raised in [place], she has been live [facility] 20 years , she lives with her in [place], supported by senior living, highest level of education is high school Physical Exam Vital Signs Vital Signs Date Time Temp Pulse Resp B/P Pulse Ox O2 Delivery O2 Flow Rate FiO2 07/13/16 12:00 97.7 93 20 169/79 95 07/13/16 10:02 Nasal Cannula 3.00 07/10/16 04:10 50 I/O 07/12/16 07/12/16 07/13/16 08:00 16:00 00:00 Intake Total 0 ml 100 ml Output Total 400 ml 250 ml Balance -400 ml -150 ml Mental Status Examination Appearance Obese elderly woman, [facility], fair hygiene, restrained in 2 points, cooperative, irritable Speech: Unremarkable, Hesitant Orientation: x3 Memory: Unremarkable Thought Process: Logical Thought Content: Unremarkable Hallucination Type: None Suicidal Ideation: No Previous Suicide Attempts: Yes Homicidal Ideation: No Previous Homicide Attempts: No Insight: Good Judgment: WNL Affect if Inappropriate: Flat Mood: Appropriate Motor Activity: Normal gait Assessment & Plan Problem List: (1) Delirium due to another medical condition Assessment & Plan: On psychiatric evaluation evaluation today the patient does not present acute symptomatology of depression, anxiety, or psychosis. The patient denies suicidal or homicidal ideation, the patient denies visual and auditory hallucinations. Patient is oriented 3, with no evident attention deficit, fluctuation of consciousness at this moment. However, at moments confused, doesn't remember the reason she is in the hospital and recent events in the hospital. As per nurse in charge and medical documentation patient has been agitated, hostile, difficult to manage in the floor, internally preoccupied and with visual hallucinations. This mentioned neuropsychiatric symptoms seems to be related with delirium due to underlying medical conditions. Patient is still at risk for sundowning, on an of confusion, agitation and aggressive behavior. She does not meet criteria for psychiatric admission at this moment. Delirium most probably would improve as medical conditions revert. Will increase Seroquel to 25 mg twice a day for behavioral control. Continue trazodone 150 mg to help with sleep. Haldol 2 mg IV every 8 hours when necessary aggressive behavior and agitation. We'll follow-up. ICD Code: F05 Assessment & Plan Estimated LOS: Mayo Tucker MD Jul 13, 2016 14:36
[2016-07-13] MEDS: SODIUM CHLOR 0.9% 1000 ML INJ 1,000 ML IV SCH (17:52)
--- NOTE | 2016-07-13 18:14 | RADRPT ---
EXAM DATE/TIME: 07/13/2016 17:02 This report includes an Addendum and supersedes previous reports for this exam. [facility] COMPARISON: No previous studies available for comparison. INDICATIONS : Left hand pain, bruising, and swelling. Patient states she is unaware of injuring her hand. MEDICAL HISTORY : Hypercholesterolemia. Gastroesophageal reflux disease. Chronic obstructive pulmonary disease. Hyperte nsion. Arthritis. Diabetes type 2. SURGICAL HISTORY : None. ENCOUNTER: Subsequent ACUITY: 2 days PAIN SCORE: 10/10 LOCATION: Left hand FINDINGS: No definite fractures, dislocations, lytic, or sclerotic lesions are seen. There is a small metallic radiopaque density in the soft tissues of the patient's fourth proximal phalanx. Slight degenerative arthritis is present within multiple interphalangeal joints and first carpometacarpal joint. CONCLUSION: Small radiopaque density as above. Grabiel Li MD on July 13, 2016 at 18:10 Board Certified Radiologist. This report was verified electronically. ADDENDUM: After further discussions with the referring physician, there is no radiopaque metal and the above-me ntioned finding is artifactually created. Grabiel Li MD on July 14, 2016 at 13:23 Board Certified Radiologist. This report was verified electronically.
[2016-07-13] MEDS ORDERED: cloNIDine HCL 0.1 MG TAB PO PRN (19:00)
[2016-07-13] MEDS: QUEtiapine FUMARATE 25 MG TAB PO SCH (19:06)
[2016-07-13] MEDS: traZODone HCL 50 MG TAB PO SCH (21:01)
[2016-07-13] MEDS: TERAZOSIN HCL 5 MG CAP PO SCH (21:01)
[2016-07-14] VITALS (10 sets, daily range): BP systolic 146–181; BP diastolic 65–88; PULSE 65–91; RESP 18–24; TEMP 97.4–98.1; O2SAT 88–97
[2016-07-14] MEDS: ACETAMINOPHEN 325 MG TAB PO PRN ×3 (02:58→22:35)
[2016-07-14] MEDS: CHLORHEXIDINE GLUCONATE 2 % 1 PACK (2 CLOTHS) TOP SCH (04:00)
[2016-07-14] MEDS: LEVOTHYROXINE SODIUM 125 MCG TAB PO SCH (07:00)
[2016-07-14] MEDS: MEDIUM DOSE INSULIN NOVOLOG SUPPLEMENTAL SCALE SQ SCH ×4 (07:00→21:00)
[2016-07-14] MEDS: HEPARIN SODIUM - SQ 10,000 UNITS/ML VIAL SQ SCH (07:00)
[2016-07-14] MEDS ORDERED: predniSONE 10 MG TAB PO SCH (09:00)
[2016-07-14] MEDS: INSULIN HUMAN NPH/R 70/30 1,000 UNITS/10 ML VIAL SQ SCH ×2 (09:23→17:03)
[2016-07-14] MEDS: predniSONE 20 MG TAB PO SCH (09:24)
[2016-07-14] MEDS: LABETALOL HCL 100 MG TAB PO SCH ×2 (09:24→22:25)
[2016-07-14] MEDS: DOCUSATE SODIUM 100 MG CAP PO SCH ×2 (09:24→22:26)
[2016-07-14] MEDS: FAMOTIDINE 20 MG TAB PO SCH ×2 (09:24→22:26)
[2016-07-14] MEDS: ALLOPURINOL 100 MG TAB PO SCH (09:24)
[2016-07-14] MEDS: ASPIRIN EC 81 MG TABEC PO SCH (09:24)
[2016-07-14] MEDS: QUEtiapine FUMARATE 25 MG TAB PO SCH ×2 (09:24→22:25)
[2016-07-14] MEDS: RESP: ALBUTEROL 2.5 MG/IPRATROPIUM 0.5 MG NEB (PRN) INH ×2 (11:51→17:44)
[2016-07-14] MEDS: SODIUM CHLOR 0.9% 1000 ML INJ 1,000 ML IV SCH (11:53)
--- NOTE | 2016-07-14 12:28 | HHI.NPPN ---
Subjective General Problems: Anemia Renal Failure: Chronic, Acute, Stage III History of Present Illness 75-year-old female with past medical history of hypertension, diabetes mellitus, hyperlipidemia, chronic obstructive pulmonary disease, possible chronic kidney disease who was admitted with worsening shortness of breath. I was called to see the patient because of elevated BUN and creatinine. Additional Remarks Patient is alert, lying on bed, oriented times one, only in place, not in distress. Review of Systems General Constitutional: Fatigue Respiratory Lungs: SOB, Cough, Wheeze Cardiovascular Cardiac: Edema, GRADY Objective Data Data 07/13/16 07/14/16 19:00 07:00 Intake Total 480 ml 1285 ml Output Total 700 ml 725 ml Balance -220 ml 560 ml Intake Oral 480 ml 987 ml IV Total 298 ml Output Urine Total 700 ml 725 ml # Bowel Movements 0 0 Vital Signs Date Time Temp Pulse Resp B/P Pulse Ox O2 Delivery O2 Flow Rate FiO2 07/14/16 11:53 95 Nasal Cannula 3.00 07/14/16 09:03 Nasal Cannula 3.00 07/14/16 08:01 98.1 91 20 146/82 88 07/14/16 05:30 167/84 07/14/16 04:00 Nasal Cannula 3.00 07/14/16 04:00 97.4 85 24 181/88 93 07/14/16 00:16 97.8 88 20 155/74 97 07/14/16 00:16 Nasal Cannula 3.00 07/13/16 22:34 93 Nasal Cannula 3.00 07/13/16 20:00 97.4 73 20 131/83 93 07/13/16 20:00 Nasal Cannula 3.00 07/13/16 16:00 97.6 90 18 199/81 96 -: 07/11/16 0708 07/13/16 0557 Physical Exam General Appearance: No Acute Distress, Comfortable Eyes Eye Exam: Pupils Equal Throat Throat Exam: Oral Mucosa [place] & Moist Neck Neck Exam: Neck Supple Pulmonary Resp Exam: No Distress, Crackles, Rhonchi, Decreased Bases, Diminished Breath Sounds Cardiology CV Exam: Regular, Normal Sinus Rhythm Gastrointestinal/Abdomen GI Exam: Soft, Non-Tender, Bowel Sounds Present, Distended Extremeties Extremities Exam: Trace Edema Neurologic Neuro Exam: Alert, Awake, Oriented Psychiatric Psych Exam: Appropriate Responses Assessment/Plan Assessment Summary: RED/Acute Renal Failure, CKD Stage III Problem List: (1) Bronchitis (2) Decompensated COPD with exacerbation (chronic obstructive pulmonary disease) (3) CO2 narcosis (4) Acute respiratory failure with hypoxia and hypercarbia (5) Chronic kidney disease (CKD) (6) Acute kidney injury Plan Patient has been non oliguric. Has chronic kidney disease, with baseline Creatinine close to 1.7-1.8. 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 BP is stable. Continue IVF and antibiotics. Renal U/S noted. Has no Eosinophiluria. Develop RED, possibly ATN/Pre renal. Creatinine continue to improve. Continue IVF, follow the urine out put and BMP. Psych. is consulted for confusion. BP is elevated, add Labetalol. Problem Qualifiers (1) Chronic kidney disease (CKD): Qualified Code: N18.3 - Chronic kidney disease (CKD), stage 3 (moderate) Tess Garcias MD Jul 14, 2016 12:28
--- NOTE | 2016-07-14 12:36 | HHI.PR ---
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- but still limited range of motion Objective Vitals Vital Signs Date Time Temp Pulse Resp B/P Pulse Ox O2 Delivery O2 Flow Rate FiO2 07/14/16 11:53 95 Nasal Cannula 3.00 07/14/16 09:03 Nasal Cannula 3.00 07/14/16 08:01 98.1 91 20 146/82 88 07/14/16 05:30 167/84 07/14/16 04:00 Nasal Cannula 3.00 07/14/16 04:00 97.4 85 24 181/88 93 07/14/16 00:16 97.8 88 20 155/74 97 07/14/16 00:16 Nasal Cannula 3.00 07/13/16 22:34 93 Nasal Cannula 3.00 07/13/16 20:00 97.4 73 20 131/83 93 07/13/16 20:00 Nasal Cannula 3.00 07/13/16 16:00 97.6 90 18 199/81 96 I/O 07/13/16 07/13/16 07/13/16 07/14/16 07/14/16 07/14/16 07:00 15:00 23:00 07:00 15:00 23:00 Intake Total 100 ml 480 ml 627 ml 658 ml Output Total 300 ml 700 ml 150 ml 575 ml Balance -200 ml -220 ml 477 ml 83 ml Intake Oral 100 ml 480 ml 627 ml 360 ml IV Total 298 ml Output Urine Total 300 ml 700 ml 150 ml 575 ml # Bowel Movements 0 0 0 0 Result Diagram: 07/11/16 0708 07/13/16 0557 Imaging Last Impressions Hand X-Ray 07/13/16 0000 Signed Impressions: Service Date/Time: June 17:02 - CONCLUSION: Small radiopaque density as above. Grabiel Li MD Chest X-Ray 07/10/16 0000 Signed Impressions: Service Date/Time: Sunday, July 10, 2016 04:48 - CONCLUSION: Mild pulmonary venous congestion. Otherwise stable examination compared to the prior study. Shahid Cardenas MD Renal Ultrasound 07/09/16 0000 Signed Impressions: Service Date/Time: Saturday, July 09, 2016 13:02 - CONCLUSION: Negative renal sonogram. Cheo Bentley MD Head CT 07/08/16 0000 Signed Impressions: Service Date/Time: Saturday, July 09, 2016 02:21 - CONCLUSION: Normal examination. Cheo Clark Jr., MD Objective Remarks awake and alert, oriented x 3, slightly anxious- wanting to go home no nuchal rigidity, no JVD decrease breath sounds, no rales or wheezes, no rhonchi abdomen- soft, flabby, nontender left hand- still marked swelling -slight decrease in swelling, able to make more of a fist today c/w yesterday but ecchymoses extended to wrist/forearm, no FB palpable LE- no edema moves all extremities spontaneously Date of Removal: Jul 11, 2016 A/P Assessment and Plan 75 years old Pulm: Respiratory failure- Continue with oxygen keep sat >92%- patient has home 02 Bronchodilators, steroids- DC due to acute psychoses NIPPV PRN for resp distress. Pulm is following -Dr. Rausch DARLENE suspect- will need NPSG as OP CV: Hypertension- some elevated readings On Norvasc 10mg daily, ASA, Hytrin, Labetalol bid added DEBORAH/diuretics DC with RED clonidine with prn parameters : ACute KI with underlying CKI from DM/HTNsive nephropathy Cr: stabilizing Continue with gentle IVF Renal US: within normal Left Hand soft tissue swelling/ecchymoses - good peripheral pulses- swelling decreased XRAy shows no fracture ? density- reviewed with Dr. Elmore- not seen in all images- likely artifact- on exam no palpable FB Warm compress to hand. PT/OT consult. Monitor area. will get CT hand/soft tissue ID: off antibitoics. Aztreonam, Azithromycin) monitor for signs of infections- DC Azactam. S/P 3 days of 500 mg Zithromax Heme: Monitor CBC DM, type 2 Hypothyroidism On SSI ( medium scale) , was also on Janumet at home- DC with RED On Synthroid 125mcg daily-TSH: 0.53 started 70/30 5 units bid diabetes teaching with SQ shots Constipation- colace 100 mg po bid Acute psychosis- behavior and emotional state improved seen by Dr. Jaffe on Seroquel 25 mg po bid with improvement. Family states that she is not herself- she's "not as vibrant" - explained to her at length that she is much improved from her previous acute agitation - member insists- states she prefers Xanax- explained to her NO with tendency for C02 retention we will decrease to 12.5 mg po bid - and monitor - we will monitor at a lower dose GI prophylaxis- on Pepcid DVT prophylaxis- On Heparin SQ- hold for now with marked ecchymoses of the hand - reassess tomorrow PT consult for deconditioning CM consult for DC planning there is definitely some family dynamics going on causing this acute agitation. d/w with family at length o Raheem White MD Jul 14, 2016 12:36
--- NOTE | 2016-07-14 13:04 | HHI.FF ---
Face to Face Verification Diagnosis: (1) Decompensated COPD with exacerbation (chronic obstructive pulmonary disease) (2) DM type 2 (diabetes mellitus, type 2) (3) Severe chronic obstructive pulmonary disease (4) Physical deconditioning Physical Therapy Order: Improve ambulation Home Health Nursing Order: Signs/symptoms of disease process Diabetic education Oxygen administration education Nursing assessment with vital signs Home Health Aide Order: To Assist In: vision therapist and meal prep Pipe Line Walker Order: To Evaluate: Support services I have seen patient Josephine Nelson on 07/14/16. My clinical findings support the need for the requested home health care services because: Patient has SOB Limited ability to care for self Need for psychosocial assistance I certify that my clinical findings support that this patient is homebound because: Hx COPD- exertion dyspnea/weakness Need for psychosocial assistance Raheem White MD Jul 14, 2016 13:04
[2016-07-14] MEDS ORDERED: PILL SPLITTER OTHER PRN (19:00)
[2016-07-14] MEDS: traZODone HCL 50 MG TAB PO SCH (22:25)
[2016-07-14] MEDS: TERAZOSIN HCL 5 MG CAP PO SCH (22:26)
[2016-07-15] MEDS ORDERED: ACETAMINOPHEN/HYDROcodone 325 MG/5 MG TAB PO ONE (03:15)
[2016-07-15] MEDS: CHLORHEXIDINE GLUCONATE 2 % 1 PACK (2 CLOTHS) TOP SCH (04:00)
[2016-07-15] MEDS: MEDIUM DOSE INSULIN NOVOLOG SUPPLEMENTAL SCALE SQ SCH ×4 (07:00→21:00)
[2016-07-15] MEDS: LEVOTHYROXINE SODIUM 125 MCG TAB PO SCH (07:02)
[2016-07-15] MEDS: SODIUM CHLOR 0.9% 1000 ML INJ 1,000 ML IV SCH ×2 (07:43→17:24)
[2016-07-15] MEDS: DOCUSATE SODIUM 100 MG CAP PO SCH ×2 (08:16→21:13)
[2016-07-15] MEDS: ASPIRIN EC 81 MG TABEC PO SCH (08:16)
[2016-07-15] MEDS: INSULIN HUMAN NPH/R 70/30 1,000 UNITS/10 ML VIAL SQ SCH ×2 (08:16→17:24)
[2016-07-15] MEDS: FAMOTIDINE 20 MG TAB PO SCH ×2 (08:16→21:13)
[2016-07-15] MEDS: predniSONE 20 MG TAB PO SCH (08:16)
[2016-07-15] MEDS: LABETALOL HCL 100 MG TAB PO SCH ×2 (08:16→21:13)
[2016-07-15] MEDS: ALLOPURINOL 100 MG TAB PO SCH (08:17)
[2016-07-15] MEDS: QUEtiapine FUMARATE 25 MG TAB PO SCH ×2 (08:17→21:13)
[2016-07-15 08:27] VITALS: BP 171/78; PULSE 91; RESP 20; TEMP 97.5; O2SAT 95
--- NOTE | 2016-07-15 09:27 | HHI.NPPN ---
Subjective General Problems: Anemia Renal Failure: Chronic, Acute, Stage III History of Present Illness 75-year-old female with past medical history of hypertension, diabetes mellitus, hyperlipidemia, chronic obstructive pulmonary disease, possible chronic kidney disease who was admitted with worsening shortness of breath. I was called to see the patient because of elevated BUN and creatinine. Additional Remarks patient's renal function is stable, improving. On NS at 50 ml/hour. Review of Systems General Constitutional: Fatigue Respiratory Lungs: SOB, Cough, Wheeze Cardiovascular Cardiac: Edema, GRADY Objective Data Data 07/14/16 07/15/16 19:00 07:00 Intake Total 600 ml 60 ml Output Total 725 ml Balance 600 ml -665 ml Intake Oral 360 ml 60 ml IV Total 240 ml Output Urine Total 725 ml # Voids 5 # Bowel Movements 0 0 Vital Signs Date Time Temp Pulse Resp B/P Pulse Ox O2 Delivery O2 Flow Rate FiO2 07/15/16 08:27 97.5 91 20 171/78 95 07/15/16 08:00 Nasal Cannula 3.00 07/14/16 23:17 98.0 65 20 148/75 93 07/14/16 23:17 Nasal Cannula 3.00 07/14/16 19:37 97.5 79 18 172/65 93 07/14/16 19:37 Nasal Cannula 3.00 07/14/16 17:44 91 Nasal Cannula 3.00 07/14/16 16:01 97.7 88 20 152/70 95 07/14/16 12:01 97.6 73 20 150/74 94 07/14/16 11:53 95 Nasal Cannula 3.00 -: 07/11/16 0708 07/13/16 0557 Physical Exam General Appearance: No Acute Distress, Comfortable Eyes Eye Exam: Pupils Equal Throat Throat Exam: Oral Mucosa [place] & Moist Neck Neck Exam: Neck Supple Pulmonary Resp Exam: No Distress, Crackles, Rhonchi, Decreased Bases, Diminished Breath Sounds Cardiology CV Exam: Regular, Normal Sinus Rhythm Gastrointestinal/Abdomen GI Exam: Soft, Non-Tender, Bowel Sounds Present, Distended Extremeties Extremities Exam: Trace Edema Neurologic Neuro Exam: Alert, Awake, Oriented Psychiatric Psych Exam: Appropriate Responses Assessment/Plan Assessment Summary: RED/Acute Renal Failure, CKD Stage III Problem List: (1) Bronchitis (2) Decompensated COPD with exacerbation (chronic obstructive pulmonary disease) (3) CO2 narcosis (4) Acute respiratory failure with hypoxia and hypercarbia (5) Chronic kidney disease (CKD) (6) Acute kidney injury Plan Patient has been non oliguric. May have underlying CKD. 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 BP is stable. Taper off fluids. Encourage oral intake. Avoid nephrotoxins. Problem Qualifiers (1) Chronic kidney disease (CKD): Qualified Code: N18.3 - Chronic kidney disease (CKD), stage 3 (moderate) Donnell Caba MD Jul 15, 2016 09:27
[2016-07-15 10:13] LABS: HEMATOCRIT 36.6 % (35.0-46.0); MEAN CELL VOLUME 90.5 FL (80.0-100.0); MEAN CORPUSCULAR HEMOGLOBIN 29.5 PG (27.0-34.0); MEAN CORPUSCULAR HGB CONC 32.6 % (32.0-36.0); PLATELET COUNT 297 TH/MM3 (150-450); RED BLOOD COUNT 4.05 MIL/MM3 (4.00-5.30); RED CELL DISTRIBUTION WIDTH 17.2 % (11.6-17.2); REVIEW FLAG FINAL; WHITE BLOOD COUNT 10.6 TH/MM3 (4.0-11.0)
[2016-07-15 10:55] LABS: BICARBONATE 23.1 MEQ/L (21.0-32.0)
[2016-07-15 11:51] VITALS: O2SAT 95
[2016-07-15 12:00] VITALS: BP 146/78; PULSE 73; RESP 20; TEMP 98; O2SAT 97
[2016-07-15 16:00] VITALS: BP 146/75; PULSE 78; RESP 20; TEMP 97.7; O2SAT 92
--- NOTE | 2016-07-15 16:31 | HHI.PR ---
Subjective Remarks No acute events overnight. Patient is resting comfortably on 3 L nasal cannula. is at bedside. She has not had any worsening of her bruising on her left hand. There are no new concerns at this time. Case management is actually working on home health. Updated patient's daughter on status. Again, patient's daughter states concerns regarding her mother's mentation while on Seroquel and requests this be discontinued. She states her mother's recent agitation was due to explainable family dynamics and stressors. Objective Vitals Vital Signs Date Time Temp Pulse Resp B/P Pulse Ox O2 Delivery O2 Flow Rate FiO2 07/15/16 16:00 97.7 78 20 146/75 92 07/15/16 12:00 98.0 73 20 146/78 97 07/15/16 11:51 95 Nasal Cannula 3.00 07/15/16 08:27 97.5 91 20 171/78 95 07/15/16 08:00 Nasal Cannula 3.00 07/14/16 23:17 98.0 65 20 148/75 93 07/14/16 23:17 Nasal Cannula 3.00 07/14/16 19:37 97.5 79 18 172/65 93 07/14/16 19:37 Nasal Cannula 3.00 07/14/16 17:44 91 Nasal Cannula 3.00 I/O 07/14/16 07/14/16 07/14/16 07/15/16 07/15/16 07/15/16 07:00 15:00 23:00 07:00 15:00 23:00 Intake Total 658 ml 360 ml 300 ml 0 ml 360 ml Output Total 575 ml 425 ml 300 ml 800 ml Balance 83 ml 360 ml -125 ml -300 ml -440 ml Intake Oral 360 ml 360 ml 60 ml 0 ml 360 ml IV Total 298 ml 240 ml Output Urine Total 575 ml 425 ml 300 ml 800 ml # Voids 5 # Bowel Movements 0 0 0 0 1 Result Diagram: 07/15/16 0900 07/15/16 0900 Objective Remarks GEN: Obese female laying flat in bed. No acute distress. CV: Regular rate and rhythm without obvious murmurs LUNGS: Clear to auscultation bilaterally. Normal respiratory effort. No wheezes , rales, rhonchi. GI: Soft, nontender, nondistended. No palpable masses. Bowel sounds WNL. EXT: Left extremity with stable ecchymosis and mild left hand swelling. NEURO/PSYCH: Afocal. Tired Date of Removal: Jul 11, 2016 A/P Problem List: (1) Acute respiratory failure with hypoxia and hypercarbia ICD Code: J96.01 Status: Acute (2) Decompensated COPD with exacerbation (chronic obstructive pulmonary disease) ICD Code: J44.1 Status: Acute (3) Acute kidney injury ICD Code: N17.9 Status: Acute (4) Chronic kidney disease (CKD) ICD Code: N18.9 Status: Chronic (5) DM type 2 (diabetes mellitus, type 2) ICD Code: E11.9 Status: Chronic Assessment and Plan 75 years old w/ hx of COPD who initially presented with respiratory failure. #) Pulm: Respiratory failure: Improving, currently stable on 3L NC Continue with oxygen keep sat >92%- patient has home 02 Bronchodilators, steroids- DO NOT ADMINISTER due to acute psychoses NIPPV PRN for resp distress. Pulm is following -Dr. Rausch, cleared from pulmonology standpoint #) DARLENE suspect- will need NPSG as outpatient Follow-up with Dr. Rausch in 1 week #) CV: Hypertension- some elevated readings On Norvasc 10mg daily, ASA, Hytrin, Labetalol bid added DEBORAH/diuretics DC with RED clonidine with prn parameters #) : ACute KI with underlying CKI from DM/HTNsive nephropathy Cr: improved at 1.3 Continue with gentle IVF Renal US: within normal #) Left Hand soft tissue swelling/ecchymoses - good peripheral pulses- swelling decreased XRAy shows no fracture ? density- reviewed with Dr. Elmore- not seen in all images- likely artifact- on exam no palpable FB Warm compress to hand. PT/OT consult. Monitor area. CT hand currently pending. #) ID: off antibitoics. (s/p Aztreonam, Azithromycin) monitor for signs of infections #) Heme: Monitor CBC #) DM, type 2 LDSS NPH 70/30 5units BID Continue Janumet at D/C #) Hypothyroidism On Synthroid 125mcg daily-TSH: 0.53 #) Constipation- colace 100 mg po bid #) Acute psychosis- behavior and emotional state improved seen by Dr. Jaffe on Seroquel 25 mg po bid with improvement. Discussed again w/ daughter today who again requests Seroquel be tapered off due to somnolence. Currently on Seroquel 12.5. Do not recommend Xanax due to tendency for C02 retention If somnolent tomorrow, will consider discontinuing Seroquel GI prophylaxis- on Pepcid DVT prophylaxis- On Heparin SQ- hold for now with marked ecchymoses of the hand - reassess tomorrow PT consult for deconditioning CM consult for DC planning Discharge Planning Anticipate discharge to home with home health tomorrow if able to tolerate 2L NC Problem Qualifiers (1) Chronic kidney disease (CKD): Qualified Code: N18.3 - Chronic kidney disease (CKD), stage 3 (moderate) Jae Rooney MD R3 Jul 15, 2016 16:31 Jae Rooney MD R3 Jul 15, 2016 16:31
--- NOTE | 2016-07-15 18:54 | RADRPT ---
EXAM DATE/TIME: 07/15/2016 18:21 [facility] COMPARISON: HAND LEFT COMPLETE ([id number]), July 13, 2016, 17:02. INDICATIONS : Left hand pain; swelling; extensive bruising, no know injury. RADIATION DOSE: 61.21 CTDIvol (mGy) MEDICAL HISTORY : Hypertension. SURGICAL HISTORY : None. ENCOUNTER: Initial ACUITY: 1 day PAIN SCALE: 5/10 LOCATION: Left hand TECHNIQUE: Volumetric scanning of the hand was performed. Using automated exposure control and adjustment of th e mA and/or kV according to patient size, radiation dose was kept as low as reasonably achievable to obtain optimal diagnostic quality images. FINDINGS: No definite fractures, or dislocations are identified. No definite lytic or sclerotic lesion is seen . CONCLUSION: No definite fracture is seen for technique. Grabiel Li MD on July 15, 2016 at 18:50 Board Certified Radiologist. This report was verified electronically.
[2016-07-15 20:00] VITALS: BP 152/67; PULSE 71; RESP 20; TEMP 97.6; O2SAT 93
[2016-07-15] MEDS: traZODone HCL 50 MG TAB PO SCH (21:12)
[2016-07-15] MEDS: TERAZOSIN HCL 5 MG CAP PO SCH (21:13)
[2016-07-16] VITALS (8 sets, daily range): BP systolic 121–178; BP diastolic 56–83; PULSE 62–77; RESP 16–20; TEMP 97.4–98.1; O2SAT 90–95
[2016-07-16] MEDS: CHLORHEXIDINE GLUCONATE 2 % 1 PACK (2 CLOTHS) TOP SCH (03:06)
[2016-07-16] MEDS: LEVOTHYROXINE SODIUM 125 MCG TAB PO SCH (05:06)
[2016-07-16] MEDS: MEDIUM DOSE INSULIN NOVOLOG SUPPLEMENTAL SCALE SQ SCH ×4 (05:08→23:21)
[2016-07-16] MEDS: QUEtiapine FUMARATE 25 MG TAB PO SCH ×2 (08:34→21:04)
[2016-07-16] MEDS: FAMOTIDINE 20 MG TAB PO SCH ×2 (08:34→21:04)
[2016-07-16] MEDS: predniSONE 20 MG TAB PO SCH (08:34)
[2016-07-16] MEDS: INSULIN HUMAN NPH/R 70/30 1,000 UNITS/10 ML VIAL SQ SCH ×2 (08:34→16:53)
[2016-07-16] MEDS: ALLOPURINOL 100 MG TAB PO SCH (08:34)
[2016-07-16] MEDS: LABETALOL HCL 100 MG TAB PO SCH ×2 (08:34→21:04)
[2016-07-16] MEDS: DOCUSATE SODIUM 100 MG CAP PO SCH (08:35)
[2016-07-16] MEDS: ASPIRIN EC 81 MG TABEC PO SCH (08:35)
--- NOTE | 2016-07-16 09:14 | HHI.PR ---
Subjective Remarks Since overnight, patient reports at least 3 bouts of very loose, foul-smelling stools. She's not had any fevers or chills. She denies any loose stools prior to this and has no history of C. difficile. She was on scheduled Tata-Colace 1 tab twice a day which is now being held. Overall, patient states she is near her baseline as far as breathing. She endorses being on 3-3.5L NC at home. She has been able to ambulate to the commode without significant shortness of breath. Per nursing, her mentation is much improved on the 12.5 Seroquel. She' s not had any emotional outbursts. She continues to have intermittent confusion during conversion, overall endorses this is improving. Denies any weakness. Her significant other is present in the room and states that he will be with her all at all times if discharged to ensure her safety. Objective Vitals Vital Signs Date Time Temp Pulse Resp B/P Pulse Ox O2 Delivery O2 Flow Rate FiO2 07/16/16 08:16 97.8 75 20 157/67 92 07/16/16 04:00 97.6 74 20 121/56 93 07/16/16 00:00 97.4 62 16 123/57 94 07/15/16 21:00 Nasal Cannula 3.00 07/15/16 20:00 97.6 71 20 152/67 93 07/15/16 16:00 97.7 78 20 146/75 92 07/15/16 12:00 98.0 73 20 146/78 97 07/15/16 11:51 95 Nasal Cannula 3.00 I/O 07/15/16 07/15/16 07/15/16 07/16/16 07/16/16 07/16/16 07:00 15:00 23:00 07:00 15:00 23:00 Intake Total 0 ml 360 ml 520 ml Output Total 300 ml 800 ml 100 ml Balance -300 ml -440 ml 420 ml Intake Oral 0 ml 360 ml 120 ml IV Total 400 ml Output Urine Total 300 ml 800 ml 100 ml # Voids 3 # Bowel Movements 0 1 0 2 Result Diagram: 07/15/16 0900 07/15/16 0900 Objective Remarks GEN: Obese female laying flat in bed. No acute distress. CV: Regular rate and rhythm without obvious murmurs LUNGS: Clear to auscultation bilaterally. Normal respiratory effort. No wheezes , rales, rhonchi. GI: Soft, nontender, nondistended. No palpable masses. Bowel sounds WNL. EXT: Left extremity with stable ecchymosis and mild left hand swelling, improved from yesterday. NEURO/PSYCH: Afocal. Speech is non-pressured but occasionally becomes lost in a thought. She appears to have incite that she is confused. Judgment appears intact. She endorses understanding of her medical condition. Date of Removal: Jul 11, 2016 A/P Problem List: (1) Acute respiratory failure with hypoxia and hypercarbia ICD Code: J96.01 Status: Acute (2) Decompensated COPD with exacerbation (chronic obstructive pulmonary disease) ICD Code: J44.1 Status: Acute (3) Acute kidney injury ICD Code: N17.9 Status: Acute (4) Chronic kidney disease (CKD) ICD Code: N18.9 Status: Chronic (5) DM type 2 (diabetes mellitus, type 2) ICD Code: E11.9 Status: Chronic Assessment and Plan 75 years old w/ hx of COPD who initially presented with respiratory failure. #) Pulm: Respiratory failure: Improving, currently stable on 3L NC Continue with oxygen keep sat >92%- patient has home 02 Bronchodilators, steroids- DO NOT ADMINISTER due to acute psychoses NIPPV PRN for resp distress. Pulm is following -Dr. Rausch, cleared from pulmonology standpoint Will obtain respiratory walk test to confirm she is stable to be discharged to home on 3L NC --> patient immediately desaturated down to mid 70% despite 3L NC, will reconsult Pulmonology for recommendations for safe discharge. #) DARLENE suspect- will need NPSG as outpatient Follow-up with Dr. Rausch in 1 week #) CV: Hypertension- some elevated readings On Norvasc 10mg daily, ASA, Hytrin, Labetalol bid added DEBORAH/diuretics DC with RED clonidine with prn parameters #) : Acute KI with underlying CKI from DM/Hypertensive nephropathy Cr: improved at 1.3 Continue with gentle IVF Renal US: within normal #) Left Hand soft tissue swelling/ecchymoses - good peripheral pulses- swelling decreased XRAy shows no fracture ? density- reviewed with Dr. Elmore- not seen in all images- likely artifact- on exam no palpable FB Warm compress to hand. PT/OT consult. Monitor area. CT hand showed no evidence of fracture #) ID: off antibitoics. (s/p Aztreonam, Azithromycin) monitor for signs of infections #) Heme: Monitor CBC #) DM, type 2 LDSS NPH 70/30 5units BID Continue Janumet at D/C #) Hypothyroidism On Synthroid 125mcg daily-TSH: 0.53 #) Diarrhea: Acute onset, foul-smelling stool. Recent ABX treatment. Will screen for c.diff. Hold colace. #) Acute psychosis- behavior and emotional state improved seen by Dr. Jaffe on Seroquel 25 mg po bid with improvement. Discussed w/ daughter who requests Seroquel be tapered off due to somnolence. Currently on Seroquel 12.5. Do not recommend Xanax due to tendency for C02 retention. Pt does not appear somnolent on current medication and per nursing and patient is improving. Recommend continuing Seroquel 12.5. GI prophylaxis- on Pepcid DVT prophylaxis- On Heparin SQ- hold for now with marked ecchymoses of the hand - reassess tomorrow PT consult for deconditioning CM consult for DC planning Discharge Planning Anticipate discharge to home with home health tomorrow if able to tolerate 2L NC Problem Qualifiers (1) Chronic kidney disease (CKD): Qualified Code: N18.3 - Chronic kidney disease (CKD), stage 3 (moderate) Jae Rooney MD R3 Jul 16, 2016 09:14
[2016-07-16 11:22] LABS: BICARBONATE 26.5 MEQ/L (21.0-32.0); POTASSIUM 3.8 MEQ/L (3.5-5.1)
[2016-07-16 14:29] LABS: C. DIFF EPI 027 PRESUMPTIVE NEGATIVE (NEGATIVE); C. DIFF TOXIN PCR NEGATIVE (NEGATIVE)
[2016-07-16] MEDS: ACETAMINOPHEN 325 MG TAB PO PRN (14:45)
[2016-07-16] MEDS: traZODone HCL 50 MG TAB PO SCH (21:03)
[2016-07-16] MEDS: TERAZOSIN HCL 5 MG CAP PO SCH (21:04)
[2016-07-16] MEDS: SODIUM CHLOR 0.9% 1000 ML INJ 1,000 ML IV SCH (23:43)
[2016-07-17] VITALS: BP 130/62; PULSE 67; RESP 16; TEMP 98.1; O2SAT 94
[2016-07-17] MEDS: SODIUM CHLOR 0.9% 1000 ML INJ 1,000 ML IV SCH (02:17)
[2016-07-17 04:00] VITALS: BP 148/78; PULSE 89; RESP 20; TEMP 97.8; O2SAT 94
[2016-07-17] MEDS: CHLORHEXIDINE GLUCONATE 2 % 1 PACK (2 CLOTHS) TOP SCH (04:00)
[2016-07-17] MEDS: LEVOTHYROXINE SODIUM 125 MCG TAB PO SCH (05:04)
[2016-07-17] MEDS: MEDIUM DOSE INSULIN NOVOLOG SUPPLEMENTAL SCALE SQ SCH (06:32)
[2016-07-17 08:00] VITALS: BP 195/79; PULSE 69; RESP 20; TEMP 97.5; O2SAT 92
[2016-07-17 08:47] LABS: AUTOMATED NEUTROPHIL # 8.9 TH/MM3 (1.8-7.7); BASOPHIL # 0.1 TH/MM3 (0-0.2); BASOPHIL % 0.8 % (0.0-2.0); EOSINOPHIL # 0.6 TH/MM3 (0-0.4); HEMATOCRIT 35.5 % (35.0-46.0); HEMO FLAGS DIFF FINAL; LYMPH % 8.7 % (9.0-44.0); MEAN CORPUSCULAR HEMOGLOBIN 28.5 PG (27.0-34.0); MEAN CORPUSCULAR HGB CONC 31.3 % (32.0-36.0); MONO % 8.4 % (0.0-8.0); NEUT % 77.1 % (16.0-70.0); PLATELET COUNT 260 TH/MM3 (150-450); RED BLOOD COUNT 3.91 MIL/MM3 (4.00-5.30); RED CELL DISTRIBUTION WIDTH 16.9 % (11.6-17.2); WHITE BLOOD COUNT 11.5 TH/MM3 (4.0-11.0)
[2016-07-17] MEDS: INSULIN HUMAN NPH/R 70/30 1,000 UNITS/10 ML VIAL SQ SCH (09:09)
[2016-07-17] MEDS: LABETALOL HCL 100 MG TAB PO SCH (09:09)
[2016-07-17] MEDS: ALLOPURINOL 100 MG TAB PO SCH (09:09)
[2016-07-17] MEDS: ASPIRIN EC 81 MG TABEC PO SCH (09:09)
[2016-07-17] MEDS: QUEtiapine FUMARATE 25 MG TAB PO SCH (09:10)
[2016-07-17] MEDS: predniSONE 20 MG TAB PO SCH (09:10)
[2016-07-17] MEDS: FAMOTIDINE 20 MG TAB PO SCH (09:11)
[2016-07-17 09:13] LABS: BICARBONATE 28.4 MEQ/L (21.0-32.0); POTASSIUM 3.5 MEQ/L (3.5-5.1)
[2016-07-17 12:00] VITALS: BP 203/84; PULSE 63; RESP 20; TEMP 97.8; O2SAT 94
[2016-07-17 12:07] VITALS: BP 157/68
[2016-07-17] MEDS ORDERED: GLIP5TAB8 PO (13:41)
[2016-07-17] MEDS ORDERED: TORS10TA2 PO (13:42)
--- NOTE | 2016-07-17 13:43 | HHI.DS ---
Discharge Summary Admission Date Jul 09, 2016 at 3:24 am Discharge Date: July 17, 2016 Admitting Diagnosis Confusion (1) Acute respiratory failure with hypoxia and hypercarbia ICD Code: J96.01 Diagnosis: Principal (2) Decompensated COPD with exacerbation (chronic obstructive pulmonary disease) ICD Code: J44.1 Diagnosis: Principal (3) Acute kidney injury ICD Code: N17.9 (4) Chronic kidney disease (CKD) ICD Code: N18.9 (5) DM type 2 (diabetes mellitus, type 2) ICD Code: E11.9 Procedures None. Brief History - From Admission 75 -year-old female with history of COPD on oxygen and nebulizers at home, hypertension diabetes , the patient's called paramedics because she was confused and feeling out of it. She admits to some confusion today. Duration one day. Denies head injury or fever. CBC/BMP: 07/17/16 0800 07/17/16 0800 Significant Findings Laboratory Tests Test 07/15/16 07/16/16 07/17/16 09:00 09:28 08:00 Blood Urea Nitrogen 24 MG/DL (7-18) 25 MG/DL (7-18) Creatinine 1.32 MG/DL 1.45 MG/DL 1.24 MG/DL (0.50-1.00) (0.50-1.00) (0.50-1.00) Estimat Glomerular Filtration 39 ML/MIN (>89) 35 ML/MIN (>89) 42 ML/MIN (>89) Rate Random Glucose 149 MG/DL 197 MG/DL 155 MG/DL (74-106) (74-106) (74-106) White Blood Count 11.5 TH/MM3 (4.0-11.0) Red Blood Count 3.91 MIL/MM3 (4.00-5.30) Hemoglobin 11.1 GM/DL (11.6-15.3) Mean Corpuscular Hemoglobin 31.3 % Concent (32.0-36.0) Neutrophils (%) (Auto) 77.1 % (16.0-70.0) Lymphocytes (%) (Auto) 8.7 % (9.0-44.0) Monocytes (%) (Auto) 8.4 % (0.0-8.0) Eosinophils (%) (Auto) 5.0 % (0.0-4.0) Neutrophils # (Auto) 8.9 TH/MM3 (1.8-7.7) Monocytes # (Auto) 1.0 TH/MM3 (0-0.9) Eosinophils # (Auto) 0.6 TH/MM3 (0-0.4) Imaging Last Impressions Upper Extremity CT 07/14/16 0000 Signed Impressions: Service Date/Time: Friday, July 15, 2016 18:21 - CONCLUSION: No definite fracture is seen for technique. Grabiel Li MD Hand X-Ray 07/13/16 0000 Signed Impressions: Service Date/Time: June 17:02 - CONCLUSION: Small radiopaque density as above. Grabiel Li MD ADDENDUM: After further discussions with the referring physician, there is no radiopaque metal and the above-mentioned finding is artifactually created. Grabiel Li MD Chest X-Ray 07/10/16 0000 Signed Impressions: Service Date/Time: Sunday, July 10, 2016 04:48 - CONCLUSION: Mild pulmonary venous congestion. Otherwise stable examination compared to the prior study. Shahid Cardenas MD Renal Ultrasound 07/09/16 0000 Signed Impressions: Service Date/Time: Saturday, July 09, 2016 13:02 - CONCLUSION: Negative renal sonogram. Cheo Bentley MD Head CT 07/08/16 0000 Signed Impressions: Service Date/Time: Saturday, July 09, 2016 02:21 - CONCLUSION: Normal examination. Cheo Clark Jr., MD PE at Discharge GEN: Obese female laying flat in bed. No acute distress. CV: Regular rate and rhythm without obvious murmurs LUNGS: Clear to auscultation bilaterally. Normal respiratory effort. No wheezes , rales, rhonchi. GI: Soft, nontender, nondistended. No palpable masses. Bowel sounds WNL. EXT: Left extremity with stable ecchymosis and mild left hand swelling, improved from yesterday. NEURO/PSYCH: Afocal. Speech is non-pressured but occasionally becomes lost in a thought. She appears to have incite that she is confused. Judgment appears intact. She endorses understanding of her medical condition. Pt update on day of discharge Patient is doing well. No acute concerns. Denies any fever, chills. Hospital Course 75 years old w/ hx of COPD who initially presented with respiratory failure. #) Pulm: Respiratory failure: Improving, currently stable on 3L NC Continue with oxygen keep sat >92%- patient has home 02 Bronchodilators, steroids- DO NOT ADMINISTER due to acute psychoses NIPPV PRN for resp distress. Pulm is following -Dr. Rausch, cleared from pulmonology standpoint Will obtain respiratory walk test to confirm she is stable to be discharged to home on 3L NC --> patient immediately desaturated down to mid 70% despite 3L NC, will reconsult Pulmonology for recommendations for safe discharge. #) DARLENE suspect- will need NPSG as outpatient Follow-up with Dr. Rausch in 1 week #) CV: Hypertension- some elevated readings On Norvasc 10mg daily, ASA, Hytrin, Labetalol bid added DEBORAH/diuretics DC with RED clonidine with prn parameters #) : Acute KI with underlying CKI from DM/Hypertensive nephropathy Cr: improved at 1.3 Continue with gentle IVF Renal US: within normal #) Left Hand soft tissue swelling/ecchymoses - good peripheral pulses- swelling decreased XRAy shows no fracture ? density- reviewed with Dr. Elmore- not seen in all images- likely artifact- on exam no palpable FB Warm compress to hand. PT/OT consult. Monitor area. CT hand showed no evidence of fracture #) ID: off antibitoics. (s/p Aztreonam, Azithromycin) monitor for signs of infections #) Heme: Monitor CBC #) DM, type 2 LDSS NPH 70/30 5units BID Continue Janumet at D/C #) Hypothyroidism On Synthroid 125mcg daily-TSH: 0.53 #) Diarrhea: Acute onset, foul-smelling stool. Recent ABX treatment. Will screen for c.diff. Hold colace. #) Acute psychosis- behavior and emotional state improved seen by Dr. Jaffe on Seroquel 25 mg po bid with improvement. Discussed w/ daughter who requests Seroquel be tapered off due to somnolence. Currently on Seroquel 12.5. Do not recommend Xanax due to tendency for C02 retention. Pt does not appear somnolent on current medication and per nursing and patient is improving. Recommend continuing Seroquel 12.5. Pt Condition on Discharge: Good Discharge Disposition: Disch w/ Home Health Serv Discharge Time: > 30 minutes Discharge Instructions DIET: Follow Instructions for: Heart Healthy Diet, Diabetic Diet Activities you can perform: Regular-No Restrictions Follow up Referrals: PCP Follow-up - 1 Week SNF/ASSISTED/ with [facility] New Medications: 3-in-1 Bedside Toilet (3-in-1 Bedside Toilet) 1 Mis Mis 1 EA .ROUTE DIRECTED DME #1 EA Torsemide (Torsemide) 10 Mg Tab 10 MG PO DAILY Fluid #30 Ref 0 TAB Changed Medications: Glipizide (Glipizide) 5 Mg Tab 5 MG PO DAILY Take 30 minutes before a meal Blood Sugar Management #60 Ref 0 TAB (Changed from: BIDAC) Continued Medications: Albuterol Neb (Albuterol Neb) Unknown Strength Neb Unknown Dose NEB Q4HR NEB PRN WHEEZING #25 Ref 0 NEBULE Allopurinol (Allopurinol) 300 Mg Tab 300 MG PO DAILY Gout #30 Ref 0 TAB Amlodipine (Amlodipine) 10 Mg Tab 10 MG PO DAILY Blood Pressure Management #30 Ref 0 TAB Aspirin (Aspirin) 81 Mg Tabdr 81 MG PO DAILY TAB Atorvastatin (Atorvastatin) Unknown Strength Tab Unknown Dose PO HS Cholesterol Management #30 Ref 0 TAB Cholecalciferol (D3 Ultra Strength) 5,000 Unit Cap 5000 UNITS PO DAILY Nutritional Supplement #30 Ref 0 CAP Cholesterol (Cholesterol) Unknown Strength Mis Unknown Dose PO HS Hydroxyzine Pamoate (Vistaril) 50 Mg Cap 50 MG PO Q6HR PRN ITCHING Ref 0 CAP Levothyroxine (Levothyroxine) 125 Mcg Tab 125 MCG PO DAILY Thyroid #30 Ref 0 TAB Lisinopril (Lisinopril) 5 Mg Tab 5 MG PO DAILY Blood Pressure Management #30 Ref 0 TAB Sitagliptin-Metformin (Janumet) 50-500 Mg Tab 1 TAB PO BID Blood Sugar Management #60 Ref 0 TAB Terazosin (Terazosin) 10 Mg Cap 10 MG PO HS #30 Ref 0 CAP Trazodone (Trazodone) 150 Mg Tab 150 MG PO HS Control Depression #30 Ref 0 TAB ([Aller-Renita]) 10 MG ([blood pressure med]) Unknown Strength Unknown Dose PO DAILY ([diabetic med]) Unknown Strength Unknown Dose PO BID Discontinued Medications: Cephalexin (Keflex) 500 Mg Cap 500 MG PO Q6H Infection #28 Ref 0 CAP Furosemide (Furosemide) 20 Mg Tab 20 MG PO DAILY #30 Ref 0 TAB Ilene Helton DO July 17, 2016 13:43
[2016-07-17] MEDS ORDERED: K-TA10TA PO (13:51)
[2016-07-17] MEDS ORDERED: TRAM50TA PO (14:00)
--- NOTE | 2016-07-17 14:30 | HHI.FF ---
Face to Face Verification Diagnosis: (1) Decompensated COPD with exacerbation (chronic obstructive pulmonary disease) (2) Acute kidney injury (3) Physical deconditioning (4) DM type 2 (diabetes mellitus, type 2) Physical Therapy Order: Evaluate and Treat, Improve ambulation, Strength and gait training Home Health Nursing Order: Medical education Signs/symptoms of disease process Diabetic education CHF education Oxygen administration education Nursing assessment with vital signs I have seen patient Josephine Nelson on 07/17/16. My clinical findings support the need for the requested home health care services because: Ltd mobility - disease progression Patient has SOB Deconditioned w/ increased weakness Limited ability to care for self Need for psychosocial assistance High risk of falls Infection w/ risk of complications I certify that my clinical findings support that this patient is homebound because: Unsteady gait/balance Unsafe to leave home unassisted Need for psychosocial assistance Unable to use public transportation Ilene Helton DO July 17, 2016 2:30 pm
--- NOTE | 2016-07-17 16:20 | HHI.NPPN ---
Subjective General Problems: Anemia Renal Failure: Chronic, Acute, Stage III History of Present Illness 75-year-old female with past medical history of hypertension, diabetes mellitus, hyperlipidemia, chronic obstructive pulmonary disease, possible chronic kidney disease who was admitted with worsening shortness of breath. I was called to see the patient because of elevated BUN and creatinine. Additional Remarks Patient is alert, not in distress, want to go home. Review of Systems General Constitutional: Fatigue Respiratory Lungs: SOB, Cough, Wheeze Cardiovascular Cardiac: Edema, GRADY Objective Data Data 07/16/16 07/17/16 19:00 07:00 Intake Total 240 ml Output Total 475 ml Balance -235 ml Intake Oral 240 ml Output Urine Total 475 ml # Voids 0 # Bowel Movements 1 Vital Signs Date Time Temp Pulse Resp B/P Pulse Ox O2 Delivery O2 Flow Rate FiO2 07/17/16 12:50 3.00 07/17/16 12:07 157/68 07/17/16 12:00 97.8 63 20 203/84 94 07/17/16 08:00 97.5 69 20 195/79 92 07/17/16 07:00 Nasal Cannula 3.00 50 07/17/16 04:00 97.8 89 20 148/78 94 07/17/16 02:30 Nasal Cannula 3.00 07/17/16 00:00 98.1 67 16 130/62 94 07/16/16 20:00 98.0 75 18 142/66 93 07/16/16 18:47 92 Nasal Cannula 3.00 07/16/16 16:37 97.9 77 20 168/74 91 -: 07/17/16 0800 07/17/16 0800 Physical Exam General Appearance: No Acute Distress, Comfortable Eyes Eye Exam: Pupils Equal Throat Throat Exam: Oral Mucosa [place] & Moist Neck Neck Exam: Neck Supple Pulmonary Resp Exam: No Distress, Crackles, Rhonchi, Decreased Bases, Diminished Breath Sounds Cardiology CV Exam: Regular, Normal Sinus Rhythm Gastrointestinal/Abdomen GI Exam: Soft, Non-Tender, Bowel Sounds Present, Distended Extremeties Extremities Exam: Trace Edema Neurologic Neuro Exam: Alert, Awake, Oriented Psychiatric Psych Exam: Appropriate Responses Assessment/Plan Assessment Summary: RED/Acute Renal Failure, CKD Stage III Problem List: (1) Bronchitis (2) Decompensated COPD with exacerbation (chronic obstructive pulmonary disease) (3) CO2 narcosis (4) Acute respiratory failure with hypoxia and hypercarbia (5) Chronic kidney disease (CKD) (6) Acute kidney injury Plan Patient has been non oliguric. May have underlying CKD. 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 BP is stable. Taper off fluids. Encourage oral intake. Avoid nephrotoxins. Creatinine is at her baseline. To follow with PCP, now for D/C. Problem Qualifiers (1) Chronic kidney disease (CKD): Qualified Code: N18.3 - Chronic kidney disease (CKD), stage 3 (moderate) Tess Garcias MD July 17, 2016 16:20
== END 2016-07-17 15:28 | disposition home health service (06) | DRG 189 ==
LOC: NEPE 23:05 → NEDA 07-09 03:24 → HIMN 07-09 06:15 → N04B 07-10 21:52
PROVIDERS: ADMIT Hospitalist; ATTEND Hospitalist
PROC: 5A09457 Assistance with Respiratory Ventilation, 24-96 Consecutive Hours, Continuous Positive Airway Pressure (ICD-10-PCS; principal; 2016-07-09)
DX: J96.21 Acute and chronic respiratory failure with hypoxia (principal); N17.0 Acute kidney failure with tubular necrosis; E87.2 Acidosis; J44.1 Chronic obstructive pulmonary disease with (acute) exacerbation; F05 Delirium due to known physiological condition; Z68.43 Body mass index [BMI] 50.0-59.9, adult; J96.22 Acute and chronic respiratory failure with hypercapnia; E11.22 Type 2 diabetes mellitus with diabetic chronic kidney disease; Z99.81 Dependence on supplemental oxygen; E66.01 Morbid (severe) obesity due to excess calories; E78.5 Hyperlipidemia, unspecified; I12.9 Hypertensive chronic kidney disease with stage 1 through stage 4 chronic kidney disease, or unspecified chronic kidney disease; E03.9 Hypothyroidism, unspecified; N18.3 Chronic kidney disease, stage 3 (moderate); J45.909 Unspecified asthma, uncomplicated; H91.93 Unspecified hearing loss, bilateral; K21.9 Gastro-esophageal reflux disease without esophagitis; D64.9 Anemia, unspecified; G47.33 Obstructive sleep apnea (adult) (pediatric); K59.00 Constipation, unspecified; R19.7 Diarrhea, unspecified; F32.9 Major depressive disorder, single episode, unspecified; F41.9 Anxiety disorder, unspecified; Z78.1 Physical restraint status; Z79.84 Long term (current) use of oral hypoglycemic drugs; Z87.891 Personal history of nicotine dependence; Z88.0 Allergy status to penicillin; Z88.1 Allergy status to other antibiotic agents; Z90.49 Acquired absence of other specified parts of digestive tract
CPT/HCPCS: 36600; 70450; 71010; 73130; 73200; 76775; 76937; 80048; 80053; 81001; 82550; 82805; 82948; 83735; 83935; 84100; 84300; 84443; 85025; 85027; 85610; 87086; 87205; 87493; 87641; 94002; 94003; 94620; 94640; 94664; 96374; J0456; J1644; J1815; J2920; J2930; J7030; J7050; J7512